=== PATIENT | male | born 1990 | race Caucasian/White ===

== ENCOUNTER 2021-05-30 12:46 | Inpatient (IN) | payer OTHER, SELFPAY ==
--- NOTE | ~2021-05-30 | CT_ITS ---
EXAMINATION: CT PELVIS WITH CONTRAST CLINICAL INFORMATION: Follow-up rectal abscess status post drainage COMPARISON: 05/30/2021 TECHNIQUE: Helical scanning was performed with submillimeter collimation through the pelvis with the use of oral contrast and during bolus intravenous injection of 100 mL of Omnipaque 350 intravenous contrast. Sagittal and coronal multiplanar 2-D reconstructions were obtained. This CT examination was performed using dose optimization techniques as appropriate, variously including the following: *Automated exposure control *Adjustment of mA and/or kV according to patient size (this includes techniques or standardized protocols for targeted exams where dose is matched to indication/reason for exam; i.e. extremities or head) *Use of iterative reconstruction technique DLP: 233 mGy-cm FINDINGS: Now seen is gas in the right greater than left hemiscrotum, well separate from the right posterior peroneal/perirectal drainage catheter, concerning for necrotizing fasciitis. Bilateral hydroceles are present. There are additional foci of gas within the subcutaneous fat of the right perineum, gluteal, and buttock soft tissues which may be related to the drain placement. There is a right posterior gluteal approach perirectal/perineal drainage catheter lateral to the recto prostatic space. The previously seen perirectal abscess is decreased in size. It has a U shaped configuration now measuring 3.0 x 3.3 cm in greatest dimension compared to 6.5 x 6 cm previously. There continues to be extension of the collection to the left ischiorectal fossa where there is a 2.4 x 1.3 cm fluid collection with a small focus of gas in image 38/65. There is severe wall thickening of the sigmoid colon with mucosal hyperemia and prominence of the vasa recta, consistent an active inflammatory process in the setting of ulcerative colitis. There is fat density wall thickening of the rectum consistent with sequelae of chronic inflammation. No lymphadenopathy. No acute or suspicious osseous abnormality. CT/CT pelvis w con IMPRESSION: New right buttock/peritoneal approach drainage catheter seen. The tip of the catheter appears somewhat superior and lateral to the center of the perirectal collection although the perirectal collection is significantly decreased in size. There continues to be extension of the collection into the left ischiorectal fat with a rim-enhancing fluid collection and gas, consistent with interval instrumentation. In addition to scattered foci of subcutaneous gas in the right buttock and perineum that are most likely attributable to the drain placement, also seen is gas within the right greater than left hemiscrotum, well separate from the course of the drainage catheter. This could be seen in the setting of necrotizing fasciitis. Recommend correlation with physical exam. Findings consistent with active inflammation of the sigmoid colon in the setting of ulcerative colitis. The findings and recommendations were discussed with Juan Moss MD by telephone at 06/03/2021 10:38 AM and it was ascertained that the content and urgency of the report was understood at the time of direct communication.
--- NOTE | ~2021-05-30 | CT_ITS ---
EXAMINATION: CT ABDOMEN AND PELVIS WITH CONTRAST CLINICAL INFORMATION: Rectal pain and bloody diarrhea. History of ulcerative colitis and abscess. COMPARISON: None TECHNIQUE: Multidetector volumetric images were obtained from the superior aspect of the liver through the pubic symphysis following administration 85 mL of Omnipaque 350 intravenous contrast. Sagittal and coronal reformatted images were obtained on the technologist's workstation. Oral contrast: Yes This CT examination was performed using dose optimization techniques as appropriate, variously including the following: *Automated exposure control *Adjustment of mA and/or kV according to patient size (this includes techniques or standardized protocols for targeted exams where dose is matched to indication/reason for exam; i.e. extremities or head) *Use of iterative reconstruction technique DLP: 402 mGy-cm FINDINGS: LUNG BASES: The visualized lung bases are unremarkable. LIVER, GALLBLADDER, AND BILIARY TREE: The liver is normal in size, shape, and attenuation. No focal hepatic lesion or biliary ductal dilatation is present. The gallbladder is unremarkable with no evidence of radiopaque gallstones, gallbladder wall thickening, or obvious pericholecystic inflammatory changes. PANCREAS: Unremarkable SPLEEN: Unremarkable ADRENAL GLANDS: Unremarkable KIDNEYS AND URETERS: The kidneys are normal in size, shape, and attenuation. No hydronephrosis, hydroureter, or calculi seen. No perinephric stranding. BLADDER: Unremarkable GASTROINTESTINAL TRACT: There is wall thickening and enhancement of the distal colon, the distal left and proximal sigmoid colon, and prominent vasa recta suggestive of active colitis. There is extraluminal probably inflammatory tissue seen posterior to the proximal sigmoid colon adjacent to the iliac vessels measuring approximately 1.5 x 2.5 cm, for example coronal reconstructed image 23 series 6. There is increased fat seen in the more distal colon and rectum suggestive of chronic changes from colitis. There is abnormal low-attenuation seen surrounding the posterior rectum from the 3 to 9 o'clock axes suggestive of multiloculated abscesses. Measured as one collection, this measures approximately 6 x 5 x 7 cm in transverse, AP and longitudinal dimension. This causes some mass effect on the rectum. There appears to be some wall thickening of the distal rectum or anus suggestive of active proctitis. There is stool in the colon suggestive of constipation. The small and large bowel is otherwise unremarkable. The appendix is not seen. The stomach is unremarkable. ABDOMINAL WALL: No significant hernia is appreciated. LYMPH NODES: Normal VASCULAR: Unremarkable PELVIC VISCERA: Unremarkable OSSEOUS STRUCTURES: Unremarkable CT/CT abdomen pelvis w con IMPRESSION: Active colitis involving the distal left sigmoid colon. Multiloculated fluid collections adjacent to the posterior rectum suggestive of perirectal abscesses from the 3 to 9 o'clock axis. This causes mass effect on the rectum. There does appear to be mild proctitis of the distal rectum. Abnormal soft tissue adjacent to the proximal posterior sigmoid colon abutting the iliac vessels probably representing inflammatory soft tissue. Constipation. Fleischner guidelines were followed.
[2021-05-30 12:47] VITALS: BP 121/73; PULSE 114; RESP 19; TEMP 36.6; O2SAT 98; BMI 21.6
[2021-05-30 13:40] LABS: Basophils Absolute Auto 0.1 X10*3/uL (0.0-0.2); Basophils Percent Auto 0.4 % (0-2); Eosinophils Percent Auto 0.1 % (0-4); Hematocrit 34.4 % (42.0-52.0); Hemoglobin 10.1 g/dl (14.0-18.0); Imm Gran Abs Auto 0.13 X10*3/uL (0.00-0.03); Imm Gran Pct Auto 0.7 % (0.0-0.4); Lymphocytes Percent Auto 5.2 % (20-40); MANUAL DIFF FLAG SCAN; Mean Corpuscular HGB Conc 29.4 g/dl (31.0-36.0); Mean Corpuscular Volume 71.5 fL (80.0-98.0); Mean Platelet Volume 9.7 fL (9.4-12.4); Monocytes Absolute Auto 2.2 X10*3/uL (0.1-1.2); Monocytes Percent Auto 11.8 % (2-11); Neutrophils Absolute Auto 15.4 x10*3/uL (2.0-8.3); Neutrophils Percent Auto 81.8 % (45-73); Platelet Count 454 X10*3/uL (160-400); Red Blood Count 4.81 X10*6/uL (4.60-5.80); Red Cell Distribution Width 16.3 % (11.0-16.0); SCAN SMEAR FLAG 1; White Blood Count 18.9 X10*3/uL (4.8-10.8)
[2021-05-30 13:42] LABS: Appearance Urine CLEAR; Color Urine YELLOW; Glucose Urine UA NEG (NEG); Leukocyte Esterase Urine NEG (NEG); Nitrite Urine NEG (NEG); PH 6.5 (5.0-8.0); Urine Blood NEG (NEG); Urine Ketones NEG (NEG); Urine Protein NEG (NEG-TRACE)
[2021-05-30 13:45] LABS: INTERNATIONAL NORM RATIO 1.5 (0.9-1.1); Prothrombin Time 17.3 SEC (9.9-13.0)
--- NOTE | 2021-05-30 13:46 | ED.GENADULT ---
HPI - General Adult General Chief complaint: General Medical Stated complaint: weakness Time Seen by Provider: 05/30/21 13:05 Source: patient Mode of arrival: ambulatory Limitations: no limitations History of Present Illness HPI narrative: 30-year-old male with history of ulcerative colitis, rectal abscess 2 months ago status post I&D who presents to the ER with increased rectal pain for the last 2 days after he had 2 days of bloody diarrhea. He has not had any bowel movement in the last 1 and half days but has had with increase in his rectal pain. He follows with a GI doctor in [employer] and is on a tapering dose of prednisone for his UC. His last colonoscopy was in December and he is recommended for a total colectomy which is planned for early the summer. He denies any visualized rectal drainage but is exquisitely tender when he went to [facility]. He had no nausea or vomiting. No fever or chills. No bowel movements in the last 1.5 days. MD complaint: Bloody diarrhea and rectal pain Onset (ago): day(s) (4) Location: abdomen and buttocks Radiation: non-radiation Severity: severe Severity scale (1-10): 10 Quality: stabbing and aching Pain Consistency: constant Relieving factors: immobilization Exacerbating factors: movement and other (Sitting, wiping) Associated symptoms: loss of appetite Treatments prior to arrival: none Related Data Home Medications Medication Instructions Recorded Confirmed prednisone 10 mg tablet 0 mg PO 05/30/21 Allergies Allergy/AdvReac Type Severity Reaction Status Date / Time No Known Allergies Allergy Verified 05/30/21 11:20 Review of Systems Review of Systems: Constitutional: No Fever, No Chills ENT/Mouth: No sore throat, No Rhinorrhea, No Swallowing Difficulty Cardiovascular: No Chest Pain, No SOB, No Orthopnea, No Edema Respiratory: No Cough, No Sputum, No Wheezing, No dyspnea Gastrointestinal: No Nausea, No Vomiting, + Diarrhea, No abdominal Pain, + Hematochezia, No Melena Genitourinary: No Dysuria, No Urinary Frequency, No Hematuria Musculoskeletal: No joint pain, No Myalgias Skin: No Skin Lesions, No rash Neuro: No Weakness, No Numbness, No Dizziness, No Headache Psych: + Anxiety/Panic, No Depression Heme/Lymph: No Bruising, No Lymphadenopathy Endocrine: No Polyuria, No Polydipsia PMFSH Past Medical History Medical History Colitis Primary sclerosing cholangitis Social History Social History Patient Tobacco Use Status: Never used Tobacco Advance Directives: No Advance Directives Information Provided: No Physical Exam ED Vital Signs: Vital Signs - 24 hr 05/30/21 12:47 05/30/21 14:00 05/30/21 16:29 Temperature 98 F 98.8 F 99.7 F Pulse Rate 114 H 94 92 Respiratory Rate 19 18 20 Blood Pressure 121/73 108/55 L Pulse Oximetry 98 98 98 BMI result Body Mass Index 21.6 Appearance: Alert. Oriented X3. No acute distress. Eyes: Pupils equal, round and reactive to light. ENT: Pharynx normal. Neck: Normal inspection. Neck supple. CVS: Tachycardic, regular rhythm. Pulses normal. Respiratory: No respiratory distress. Breath sounds normal. Abdomen: Soft and nontender. +BS normal x4. Superior to the anal verge and anus there is a 2 cm open area, possible fissure. It is tender. No purulence drainage or fluctuance. Only able to probe into the anus about 1 cm until patient had extreme pain and did not tolerate the examination. Skin: Skin warm and dry. Normal skin color. Normal skin turgor. No rashes. Extremities: No lower extremity edema. Neuro: Oriented X 3. No motor deficit. No sensory deficit. Course Course Course Narrative: 30-year-old male with history of ulcerative colitis diagnosed 10 years ago who has plans for a total colectomy this summer presents to the ER with rectal pain and constipation for the last 2 days. Prior to this he had 2 days of bloody diarrhea. He has history of a rectal abscess that required incision and drainage and admission to hospital in [employer] a few months ago. His exam reveals a possible fissure superior to the anal verge. No palpable rectal abscess however exam was limited due to discomfort. Will get lab workup and CT scan for further evaluation. Reevaluation(s) Reevaluation #1: With blood cell count elevated at 18.9. Concern for possible rectal abscess. Will give an empiric dose of IV Zosyn. IV fluids ordered. Will check lactic acid and blood cultures. Reevaluation #2: CT scan read was delayed. Result just came back with active colitis involving the distal left sigmoid colon. There is also multiloculated fluid collections adjacent to the posterior rectum suggestive of perirectal abscesses from the 3 to 9 o'clock axis. Causing mass effect on the rectum. There is mild proctitis of the distal rectum as well. Brad elder and Dr. Moss from General surgery for admission. He will take to the operating room tomorrow for incision and drainage. Consultations Consultation #1: Dr. Moss from General surgery. Medical Decision Making Lab Data Result diagrams: 05/30/21 13:33 05/30/21 13:33 Labs: Lab Results 05/30/21 05/30/21 05/30/21 Range/Units 13:33 13:33 13:33 WBC 18.9 H (4.8-10.8) X10*3/uL RBC 4.81 (4.60-5.80) X10*6/uL Hgb 10.1 L (14.0-18.0) g/dl Hct 34.4 L (42.0-52.0) % MCV 71.5 L (80.0-98.0) fL MCH 21.0 L (27.0-33.0) pg MCHC 29.4 L (31.0-36.0) g/dl RDW 16.3 H (11.0-16.0) % Plt Count 454 H (160-400) X10*3/uL MPV 9.7 (9.4-12.4) fL Immature Gran % (Auto) 0.7 H (0.0-0.4) % Neut % (Auto) 81.8 H (45-73) % Lymph % (Auto) 5.2 L (20-40) % [place] % (Auto) 11.8 H (2-11) % Eos % (Auto) 0.1 (0-4) % Baso % (Auto) 0.4 (0-2) % Lymph # (Auto) 1.0 L (1.2-4.9) X10*3/uL [place] # (Auto) 2.2 H (0.1-1.2) X10*3/uL Eos # (Auto) 0.0 (0.0-0.4) X10*3/uL Baso # (Auto) 0.1 (0.0-0.2) X10*3/uL Abs Immat Gran (auto) 0.13 H (0.00-0.03) X10*3/uL Absolute Neuts (auto) 15.4 H (2.0-8.3) x10*3/uL Absolute Nucleated RBC 0.000 (0.0-0.012) X10*3/uL Nucleated RBC % (auto) 0.0 (0.0-0.2) /100WBC Smear Tech's Comments VERIFIED PT 17.3 H (9.9-13.0) SEC INR 1.5 H (0.9-1.1) APTT 30.9 (24.1-38.0) SEC Sodium 139 (135-145) mmol/L Potassium 3.9 (3.3-5.1) mmol/L Chloride 103 (96-108) mmol/L Carbon Dioxide 27 (22-29) mmol/L Anion Gap 13 (12-20) BUN 9 (9-16) mg/dL Creatinine 0.73 (0.5-1.4) mg/dL Estim Creat Clear Calc 149.8 Estimated GFR > 60 Random Glucose 87 (60-115) mg/dL Lactic Acid (0.5-2.0) mmol/L Calcium 8.9 (8.4-10.2) mg/dL Magnesium 2.1 (1.6-2.6) mg/dL Total Bilirubin 0.7 (0.0-1.0) mg/dL Direct Bilirubin 0.3 (0.0-0.5) mg/dL AST 10 (5-37) U/L ALT 11 (0-40) U/L Alkaline Phosphatase 167 H (39-117) U/L Total Protein 5.9 L (6.5-8.0) g/dL Albumin 3.5 (3.5-5.0) g/dL Urine Color Urine Appearance Urine pH (5.0-8.0) Ur Specific [place] (1.005-1.025) Urine Protein (NEG-TRACE) MG/DL Urine Glucose (UA) (NEG) MG/DL Urine Ketones (NEG) MG/DL Urine Blood (NEG) Urine Nitrite (NEG) Ur Leukocyte Esterase (NEG) COVID-19 (AYO) (Negative) COVID-19 Clin Com 05/30/21 05/30/21 05/30/21 Range/Units 13:33 13:33 13:59 WBC (4.8-10.8) X10*3/uL RBC (4.60-5.80) X10*6/uL Hgb (14.0-18.0) g/dl Hct (42.0-52.0) % MCV (80.0-98.0) fL MCH (27.0-33.0) pg MCHC (31.0-36.0) g/dl RDW (11.0-16.0) % Plt Count (160-400) X10*3/uL MPV (9.4-12.4) fL Immature Gran % (Auto) (0.0-0.4) % Neut % (Auto) (45-73) % Lymph % (Auto) (20-40) % [place] % (Auto) (2-11) % Eos % (Auto) (0-4) % Baso % (Auto) (0-2) % Lymph # (Auto) (1.2-4.9) X10*3/uL [place] # (Auto) (0.1-1.2) X10*3/uL Eos # (Auto) (0.0-0.4) X10*3/uL Baso # (Auto) (0.0-0.2) X10*3/uL Abs Immat Gran (auto) (0.00-0.03) X10*3/uL Absolute Neuts (auto) (2.0-8.3) x10*3/uL Absolute Nucleated RBC (0.0-0.012) X10*3/uL Nucleated RBC % (auto) (0.0-0.2) /100WBC Smear Tech's Comments PT (9.9-13.0) SEC INR (0.9-1.1) APTT (24.1-38.0) SEC Sodium (135-145) mmol/L Potassium (3.3-5.1) mmol/L Chloride (96-108) mmol/L Carbon Dioxide (22-29) mmol/L Anion Gap (12-20) BUN (9-16) mg/dL Creatinine (0.5-1.4) mg/dL Estim Creat Clear Calc Estimated GFR Random Glucose (60-115) mg/dL Lactic Acid 1.1 (0.5-2.0) mmol/L Calcium (8.4-10.2) mg/dL Magnesium (1.6-2.6) mg/dL Total Bilirubin (0.0-1.0) mg/dL Direct Bilirubin (0.0-0.5) mg/dL AST (5-37) U/L ALT (0-40) U/L Alkaline Phosphatase (39-117) U/L Total Protein (6.5-8.0) g/dL Albumin (3.5-5.0) g/dL Urine Color YELLOW Urine Appearance CLEAR Urine pH 6.5 (5.0-8.0) Ur Specific [place] 1.010 (1.005-1.025) Urine Protein NEG (NEG-TRACE) MG/DL Urine Glucose (UA) NEG (NEG) MG/DL Urine Ketones NEG (NEG) MG/DL Urine Blood NEG (NEG) Urine Nitrite NEG (NEG) Ur Leukocyte Esterase NEG (NEG) COVID-19 (AYO) Negative (Negative) COVID-19 Clin Com See Note Discharge Plan Discharge Clinical Impression: Perirectal abscess, Colitis Patient Disposition: Admitted As Inpatient
[2021-05-30 13:47] LABS: Partial Thromboplastin Time 30.9 SEC (24.1-38.0)
[2021-05-30 13:54] LABS: IDNOW Serial# 16C4AD1C
[2021-05-30 13:55] LABS: COVID-19 Test Negative (Negative)
[2021-05-30 13:58] LABS: Alanine Aminotransferase 11 U/L (0-40); Albumin Level 3.5 g/dL (3.5-5.0); Alkaline Phosphatase 167 U/L (39-117); Anion Gap 13 (12-20); Aspartate Amino Transferase 10 U/L (5-37); Bilirubin Direct 0.3 mg/dL (0.0-0.5); Bilirubin Total 0.7 mg/dL (0.0-1.0); Blood Urea Nitrogen 9 mg/dL (9-16); Calcium 8.9 mg/dL (8.4-10.2); Carbon Dioxide 27 mmol/L (22-29); Chloride 103 mmol/L (96-108); Creatinine Clr Calc Pharmacy 149.8; Estimated Glomerular Filt Rate > 60; Glucose Random 87 mg/dL (60-115); Magnesium 2.1 mg/dL (1.6-2.6); Potassium 3.9 mmol/L (3.3-5.1); Sodium 139 mmol/L (135-145); Total Protein 5.9 g/dL (6.5-8.0)
[2021-05-30 14:00] VITALS: PULSE 94; RESP 18; TEMP 37.1; O2SAT 98
[2021-05-30 14:03] LABS: SLIDE REVIEW VERIFIED
[2021-05-30] MEDS: 0.9 % Sodium Chloride 1,000 ML 999 ML IVCONT ×2 (14:03→15:31)
[2021-05-30 14:16] LABS: Lactic Acid 1.1 mmol/L (0.5-2.0)
[2021-05-30] MEDS: Piperacillin Sodium/Tazobactam 3.375 GM in 0.9 % Sodium Chloride 50 ML IV ×2 (14:16→20:05)
[2021-05-30] MEDS: iohexoL 350 MG/ML 100 ML INFUS..BTL IV (14:54)
[2021-05-30 16:29] VITALS: BP 108/55; PULSE 92; RESP 20; TEMP 37.6; O2SAT 98
[2021-05-30 17:44] VITALS: BP 95/55
[2021-05-30] MEDS: Morphine Sulfate 4 MG/ML CARTRIDGE IVPUSH (17:45)
[2021-05-30] MEDS: Dextrose 5 % and Lactated Ring 1,000 ML 125 ML IVCONT (18:09)
--- NOTE | 2021-05-30 19:49 | PHA.MEDREC ---
Pharmacy Consult ? Medication Reconciliation Pharmacy has completed the medication reconciliation.
[2021-05-30 19:59] VITALS: BP 112/63; PULSE 90; RESP 18; O2SAT 96
[2021-05-30 21:14] VITALS: BP 93/59; PULSE 88; RESP 20; TEMP 37.6; O2SAT 97
[2021-05-31] VITALS (10 sets, daily range): BP systolic 90–118; BP diastolic 56–68; PULSE 80–113; RESP 14–18; TEMP 36.1–38.4; O2SAT 95–100; BMI 22.6
[2021-05-31 00:59] LABS: Appearance Urine CLEAR; Color Urine YELLOW; Glucose Urine UA NEG (NEG); Leukocyte Esterase Urine NEG (NEG); Nitrite Urine NEG (NEG); Urine Blood NEG (NEG); Urine Ketones NEG (NEG); Urine Protein NEG (NEG-TRACE)
[2021-05-31] MEDS: 0.9 % Sodium Chloride 500 ML IV ×2 (01:42→02:32)
[2021-05-31] MEDS: Piperacillin Sodium/Tazobactam 3.375 GM in 0.9 % Sodium Chloride 50 ML IV ×3 (01:43→19:51)
[2021-05-31] MEDS: oxyCODONE HCl Immed Release 5 MG TABLET PO ×2 (02:11→15:54)
[2021-05-31] MEDS: Dextrose 5 % and Lactated Ring 1,000 ML 125 ML IVCONT ×2 (03:17→15:54)
--- NOTE | 2021-05-31 05:30 | P.HPGS_ITS ---
History of Present Illness History of Present Illness Date of Service: 05/31/21 Chief complaint: Ulcerative colitis, rectal abscess, sepsis Narrative: Jordy Barnett is a 30 year old male with a known history of ulcerative colitis and a previous rectal abscess two months ago, now with a two day history of rectal pain and constipation followed by bloody diarrhea. He is being following by a aviation operations specialist in [place] and recently was placed on a Prednisone taper for the ulcerative colitis. He denies prior fever, chills, nausea or vomiting. He was planning a total colectomy in the summer. Patient was initially evaluated in the walk-in clinic, then sent to ED for further evaluation. WBC 18, CT positivie for rectal abscess and colitis. Review of Systems Constitutional: Constitutional: Denies chills, Denies fever(s), Denies headache(s) and Denies poor appetite ENT: Denies dizziness and Denies headache(s) Cardiovascular: Cardiovascular: Denies chest pain, Denies rapid heart rate, Denies palpitations and Denies slow heart rate Respiratory: Respiratory: Denies chest congestion, Denies cough, Denies pain on inspiration and Denies wheezing Gastrointestinal: Gastrointestinal: Denies abdominal pain, Denies bloating, Reports hematochezia, Denies change in stool character, Reports constipation, Reports diarrhea, Denies nausea, Denies vomiting, Denies hematemesis and Reports other (rectal pain) Genitourinary: Genitourinary: Reports urinary hesitancy Musculoskeletal: Musculoskeletal: Denies back pain, Denies arthralgias, Denies joint swelling and Denies numbness Integumentary/Breasts: Skin/Breast: Denies change in pigmentation, Denies erythema and Denies rash Neurologic: Denies dizziness, Denies headache(s) and Denies numbness Psychiatric: Psychiatric: Denies anxiety and Denies depression Endocrine: Endocrine: Denies palpitations Hematologic/Lymphatic: Hematologic/Lymphatic: Denies easy bleeding, Denies easy bruising and Denies lymphadenopathy Allergic/Immunologic: Allergic/Immunologic: Denies wheezing PMFSH Past Medical History Medical History Colitis Primary sclerosing cholangitis Social History Social History Household Members: Other Housing: Condominium Do you presently have visiting nurse or other home services: No Patient Tobacco Use Status: Never used Tobacco Use of substances other than those prescribed or required for medical reasons: No Currently Displaying Signs/Symptoms of Drug Intoxication Withdrawal: No Any prior treatment program specific to substance use: No Have you been hit, kicked, punched, or otherwise hurt by someone within the past year? If so, by whom?: No Do you feel safe in your current relationship?: Yes Is there a partner from a previous relationship who is making you feel unsafe now?: No Are you made to feel afraid or neglected: No Are you DNR?: No Advance Directives: No Advance Directives Information Provided: No Do you have thoughts of harming others: None Do you have a plan to hurt others: No Plan Recently lost weight without trying: No How much weight loss: Not applicable Eating poorly because of decreased appetite: No Nutrition screen score: 0 Nutrition Risks: No Nutritional Risk Poor oral hygiene: No Meds Allergies Allergy/AdvReac Type Severity Reaction Status Date / Time No Known Allergies Allergy Verified 05/30/21 11:20 Active Medications: Current Medications Hydromorphone HCl (Hydromorphone Hcl 1 Mg/Ml Syringe) 0.5 mg IVPUSH Q3H PRN; Protocol PRN Reason: Pain, Severe (Pain Scale 7-10) Acetaminophen (Ofirmev) 1,000 mg in 100 mls @ 400 mls/hr IV Q6H [facility] Last Infusion: 05/31/21 00:45 Dose: Infused Documented by: Dextrose/Lactated Ringer's ([email or web address]) 1,000 mls @ 125 mls/hr IVCONT .Q8H [facility] Last Admin: 05/31/21 03:17 Dose: 125 mls/hr Documented by: Piperacillin Sod/Tazobactam (Sod 3.375 gm/ Sodium Chloride) 50 mls @ 100 mls/hr IV Q6H [facility] Last Infusion: 05/31/21 02:13 Dose: Infused Documented by: Ondansetron HCl (Ondansetron Hcl 4 Mg/2 Ml Vial) 4 mg IVPUSH Q8H PRN PRN Reason: Nausea Oxycodone HCl (Oxycodone Hcl Immed Release 5 Mg Tablet) 5 mg PO Q6H PRN PRN Reason: Pain, Moderate (Pain Scale 4-6 Last Admin: 05/31/21 02:11 Dose: 5 mg Documented by: Pharmacy Consult (Consult Rx Perform Med Rec) 1 each MISCELLANE ONCE PRN PRN Reason: Consult order Prednisone (Prednisone 10 Mg Tablet) 10 mg PO DAILY LUIS MIGUEL Sodium Chloride (0.9 % Sodium Chloride Flush 3 Ml Syringe) 3 ml IVFLUSH QSHIFT LUIS MIGUEL Zolpidem Tartrate (Zolpidem Tartrate 5 Mg Tablet) 5 mg PO BEDTIME PRN PRN Reason: Insomnia Home Medications Medication Instructions Recorded Confirmed Last Taken Type multivitamin 1 tab PO DAILY 05/30/21 05/30/21 Unknown History prednisone 10 mg tablet 10 mg PO DAILY 05/30/21 05/30/21 Unknown History Physical Exam Vital Signs: Vital Signs: Last Vital Signs Temp 98.3 F 05/31/21 03:12 Pulse 98 05/31/21 03:12 Resp 18 05/31/21 03:12 BP 113/63 05/31/21 03:12 Pulse Ox 99 05/31/21 03:12 BMI result Body Mass Index 22.6 Const: General: cooperative, comfortable and well developed Nutritional Appearance: well nourished Orientation/consciousness: patient oriented x3 Eyes: Sclerae: sclerae normal EOM: EOMs intact bilaterally Neck: Neck: Yes normal visual inspection Resp: Effort & Inspection: normal respiratory effort, no cough, no respiratory distress and no stridor Cardio: Jugular venous distension: no JVD GI: Inspection: Yes normal to inspection Palpation (GI): Soft to palpation, nontender, no guarding and not rigid Rectal Exam - Male: Yes other ( Tender in fluctuance. PeriAnal skin) Skin: General skin exam: dry skin Rashes: no rashes Neuro: General: patient oriented x3 and no focal motor deficits Extrem: General: Yes full ROM and Yes no clubbing, cyanosis or edema Psych: Appearance: grossly normal Results Results Labs: Short CBC 05/30/21 Range/Units 13:33 WBC 18.9 H (4.8-10.8) X10*3/uL Hgb 10.1 L (14.0-18.0) g/dl Hct 34.4 L (42.0-52.0) % Plt Count 454 H (160-400) X10*3/uL BMP 05/30/21 13:33 Sodium 139 Potassium 3.9 Chloride 103 Carbon Dioxide 27 BUN 9 Creatinine 0.73 Calcium 8.9 Liver Function 05/30/21 Range/Units 13:33 Total Bilirubin 0.7 (0.0-1.0) mg/dL Direct Bilirubin 0.3 (0.0-0.5) mg/dL AST 10 (5-37) U/L ALT 11 (0-40) U/L Alkaline Phosphatase 167 H (39-117) U/L Albumin 3.5 (3.5-5.0) g/dL Urine 05/30/21 05/31/21 Range/Units 13:33 00:53 Urine Color YELLOW YELLOW Urine Appearance CLEAR CLEAR Urine pH 6.5 6.0 (5.0-8.0) Ur Specific [place] 1.010 1.010 (1.005-1.025) Urine Protein NEG NEG (NEG-TRACE) MG/DL Urine Glucose (UA) NEG NEG (NEG) MG/DL Assessment and Plan (1) Perirectal abscess: Status: Acute (2) Colitis: Status: Acute Plan 30 year old male patient with a history of UC and rectal abscess presenting with a recurrent episode of rectal pain found to have a rectal abscess by CT. Patient is admitted for IV antibiotics and will need an exam under anesthesia, drainage of the rectal abscess in the am. Will keep NPO with IV hydration, Zosyn IV, continue prednisone taper. I reviewed the procedure, alternatives, and risks with the patient he consents to a an exam under anesthesia with incision and drainage of a perirectal abscess. He has been added onto the OR schedule for this morning. Quality Stroke Does the patient have a stroke diagnosis?: No VTE Prior VTE?: No VTE Risk Level:: Surgical - moderate VTE Device Contraindication: N/A - Device Ordered VTE Drug Contraindication: Treatment Not Indicated Procedures Date of Service Date of Service: 05/31/21
[2021-05-31 06:34] LABS: Basophils Absolute Auto 0.1 X10*3/uL (0.0-0.2); Basophils Percent Auto 0.5 % (0-2); Eosinophils Absolute Auto 0.1 X10*3/uL (0.0-0.4); Eosinophils Percent Auto 0.9 % (0-4); Hematocrit 29.2 % (42.0-52.0); Hemoglobin 8.6 g/dl (14.0-18.0); Imm Gran Abs Auto 0.11 X10*3/uL (0.00-0.03); Imm Gran Pct Auto 0.9 % (0.0-0.4); Lymphocytes Absolute Auto 0.7 X10*3/uL (1.2-4.9); Lymphocytes Percent Auto 5.5 % (20-40); MANUAL DIFF FLAG SCAN; Mean Corpuscular HGB Conc 29.5 g/dl (31.0-36.0); Mean Corpuscular Hemoglobin 21.2 pg (27.0-33.0); Mean Corpuscular Volume 71.9 fL (80.0-98.0); Mean Platelet Volume 9.7 fL (9.4-12.4); Monocytes Absolute Auto 2.3 X10*3/uL (0.1-1.2); Monocytes Percent Auto 17.5 % (2-11); Neutrophils Absolute Auto 9.7 x10*3/uL (2.0-8.3); Neutrophils Percent Auto 74.7 % (45-73); Platelet Count 370 X10*3/uL (160-400); Red Blood Count 4.06 X10*6/uL (4.60-5.80); Red Cell Distribution Width 16.7 % (11.0-16.0); SCAN SMEAR FLAG 1; White Blood Count 12.9 X10*3/uL (4.8-10.8)
[2021-05-31 06:46] LABS: Anion Gap 11 (12-20); Blood Urea Nitrogen 8 mg/dL (9-16); Calcium 8.4 mg/dL (8.4-10.2); Carbon Dioxide 26 mmol/L (22-29); Chloride 104 mmol/L (96-108); Creatinine Clr Calc Pharmacy 168.1; Estimated Glomerular Filt Rate > 60; Glucose Random 108 mg/dL (60-115); Potassium 3.9 mmol/L (3.3-5.1); Sodium 137 mmol/L (135-145)
[2021-05-31 06:59] LABS: SLIDE REVIEW VERIFIED
--- NOTE | 2021-05-31 07:14 | PC.NURSE ---
Pt had difficult time urinating. Voided 300 upon admission to unit and later 100. This was after patient recieved 1,000 NS bolus and patient also has fluids infusing at 125/hr. Pt uncomfortable with c/o abdominal pain. Spoke with Dr Moss who ordered FC-patient refused. Dr Moss aware. Straight cathed pt for 800mls. Pt states he feels much better. IV fluids infusing as ordered. Dr Moss in to see patient this am. Pt to go to oR this am. Will continue to monitor.
[2021-05-31] MEDS: Lactated Ringers 1,000 ML 50 ML IVCONT (08:02)
--- NOTE | 2021-05-31 08:06 | P.CONAN_ITS ---
HPI - Anesthesia Eval Consult details Narrative: Perirectal Abscess PMFSH Active Problems Active Problems: All Active Problems (Updated 05/30/21 @ 17:28 by DENISSE Louie) Perirectal abscess (Acute) Colitis (Acute) Abdominal pain (Acute) Past Medical History Medical History Colitis Primary sclerosing cholangitis Family History Family history of problems with anesthesia: No Surgical History History of Problems with Anesthesia: No Social History Social History Household Members: Other Housing: [facility] Do you presently have visiting nurse or other home services: No Patient Tobacco Use Status: Never used Tobacco Use of substances other than those prescribed or required for medical reasons: No Currently Displaying Signs/Symptoms of Drug Intoxication Withdrawal: No Any prior treatment program specific to substance use: No Have you been hit, kicked, punched, or otherwise hurt by someone within the past year? If so, by whom?: No Do you feel safe in your current relationship?: Yes Is there a partner from a previous relationship who is making you feel unsafe now?: No Are you made to feel afraid or neglected: No Are you DNR?: No Advance Directives: No Advance Directives Information Provided: No Do you have thoughts of harming others: None Do you have a plan to hurt others: No Plan Recently lost weight without trying: No How much weight loss: Not applicable Eating poorly because of decreased appetite: No Nutrition screen score: 0 Nutrition Risks: No Nutritional Risk Poor oral hygiene: No Meds Allergies Allergy/AdvReac Type Severity Reaction Status Date / Time No Known Allergies Allergy Verified 05/30/21 11:20 Active Medications: Current Medications Hydromorphone HCl (Hydromorphone Hcl 1 Mg/Ml Syringe) 0.5 mg IVPUSH Q3H PRN; Protocol PRN Reason: Pain, Severe (Pain Scale 7-10) Acetaminophen (Ofirmev) 1,000 mg in 100 mls @ 400 mls/hr IV Q6H [facility] Last Infusion: 05/31/21 05:48 Dose: Infused Documented by: Dextrose/Lactated Ringer's (D5lr) 1,000 mls @ 125 mls/hr IVCONT .Q8H [facility] Last Infusion: 05/31/21 07:58 Dose: 0 mls/hr Documented by: Piperacillin Sod/Tazobactam (Sod 3.375 gm/ Sodium Chloride) 50 mls @ 100 mls/hr IV Q6H [facility] Last Admin: 05/31/21 07:58 Dose: Not Given Documented by: Ondansetron HCl (Ondansetron Hcl 4 Mg/2 Ml Vial) 4 mg IVPUSH Q8H PRN PRN Reason: Nausea Oxycodone HCl (Oxycodone Hcl Immed Release 5 Mg Tablet) 5 mg PO Q6H PRN PRN Reason: Pain, Moderate (Pain Scale 4-6 Last Admin: 05/31/21 02:11 Dose: 5 mg Documented by: Pharmacy Consult (Consult Rx Perform Med Rec) 1 each MISCELLANE ONCE PRN PRN Reason: Consult order Prednisone (Prednisone 10 Mg Tablet) 10 mg PO DAILY [facility] Last Admin: 05/31/21 07:58 Dose: Not Given Documented by: Sodium Chloride (0.9 % Sodium Chloride Flush 3 Ml Syringe) 3 ml IVFLUSH QSHIFT [facility] Last Admin: 05/31/21 07:57 Dose: Not Given Documented by: Zolpidem Tartrate (Zolpidem Tartrate 5 Mg Tablet) 5 mg PO BEDTIME PRN PRN Reason: Insomnia Home Medications Medication Instructions Recorded Confirmed Last Taken Type multivitamin 1 tab PO DAILY 05/30/21 05/30/21 Unknown History prednisone 10 mg tablet 10 mg PO DAILY 05/30/21 05/30/21 Unknown History Exam Exam Date and Time: May 31, 2021 0806 Height,Weight and Vital Signs: Height 5 ft 11 in Weight 73.5 kg Last Vital Signs Temp 98.7 F 05/31/21 07:56 Pulse 87 05/31/21 07:56 Resp 16 05/31/21 07:56 BP 109/65 05/31/21 07:56 Pulse Ox 97 05/31/21 07:56 Pertinent Lab Results Pertinent Lab Results: Laboratory Tests 05/30/21 05/30/21 05/30/21 13:33 13:33 13:33 WBC 18.9 H RBC 4.81 Hgb 10.1 L Hct 34.4 L MCV 71.5 L MCH 21.0 L MCHC 29.4 L RDW 16.3 H Plt Count 454 H MPV 9.7 Immature Gran % (Auto) 0.7 H Neut % (Auto) 81.8 H Lymph % (Auto) 5.2 L [place] % (Auto) 11.8 H Eos % (Auto) 0.1 Baso % (Auto) 0.4 Lymph # (Auto) 1.0 L [place] # (Auto) 2.2 H Eos # (Auto) 0.0 Baso # (Auto) 0.1 Abs Immat Gran (auto) 0.13 H Absolute Neuts (auto) 15.4 H Absolute Nucleated RBC 0.000 Nucleated RBC % (auto) 0.0 Smear Tech's Comments VERIFIED PT 17.3 H INR 1.5 H APTT 30.9 Sodium 139 Potassium 3.9 Chloride 103 Carbon Dioxide 27 Anion Gap 13 BUN 9 Creatinine 0.73 Estim Creat Clear Calc 149.8 Estimated GFR > 60 Random Glucose 87 Lactic Acid Calcium 8.9 Magnesium 2.1 Total Bilirubin 0.7 Direct Bilirubin 0.3 AST 10 ALT 11 Alkaline Phosphatase 167 H Total Protein 5.9 L Albumin 3.5 Urine Color Urine Appearance Urine pH Ur Specific [place] Urine Protein Urine Glucose (UA) Urine Ketones Urine Blood Urine Nitrite Ur Leukocyte Esterase COVID-19 ([facility]) [facility] Clin Com 05/30/21 05/30/21 05/30/21 13:33 13:33 13:59 WBC RBC Hgb Hct MCV MCH MCHC RDW Plt Count MPV Immature Gran % (Auto) Neut % (Auto) Lymph % (Auto) [place] % (Auto) Eos % (Auto) Baso % (Auto) Lymph # (Auto) [place] # (Auto) Eos # (Auto) Baso # (Auto) Abs Immat Gran (auto) Absolute Neuts (auto) Absolute Nucleated RBC Nucleated RBC % (auto) Smear Tech's Comments PT INR APTT Sodium Potassium Chloride Carbon Dioxide Anion Gap BUN Creatinine Estim Creat Clear Calc Estimated GFR Random Glucose Lactic Acid 1.1 Calcium Magnesium Total Bilirubin Direct Bilirubin AST ALT Alkaline Phosphatase Total Protein Albumin Urine Color YELLOW Urine Appearance CLEAR Urine pH 6.5 Ur Specific [place] 1.010 Urine Protein NEG Urine Glucose (UA) NEG Urine Ketones NEG Urine Blood NEG Urine Nitrite NEG Ur Leukocyte Esterase NEG COVID-19 ([facility]) Negative [facility] Clin Com See Note 05/31/21 05/31/21 05/31/21 00:53 06:15 06:15 WBC 12.9 H RBC 4.06 L Hgb 8.6 L Hct 29.2 L MCV 71.9 L MCH 21.2 L MCHC 29.5 L RDW 16.7 H Plt Count 370 MPV 9.7 Immature Gran % (Auto) 0.9 H Neut % (Auto) 74.7 H Lymph % (Auto) 5.5 L [place] % (Auto) 17.5 H Eos % (Auto) 0.9 Baso % (Auto) 0.5 Lymph # (Auto) 0.7 L [place] # (Auto) 2.3 H Eos # (Auto) 0.1 Baso # (Auto) 0.1 Abs Immat Gran (auto) 0.11 H Absolute Neuts (auto) 9.7 H Absolute Nucleated RBC 0.000 Nucleated RBC % (auto) 0.0 Smear Tech's Comments VERIFIED PT INR APTT Sodium 137 Potassium 3.9 Chloride 104 Carbon Dioxide 26 Anion Gap 11 L BUN 8 L Creatinine 0.68 Estim Creat Clear Calc 168.1 Estimated GFR > 60 Random Glucose 108 Lactic Acid Calcium 8.4 Magnesium Total Bilirubin Direct Bilirubin AST ALT Alkaline Phosphatase Total Protein Albumin Urine Color YELLOW Urine Appearance CLEAR Urine pH 6.0 Ur Specific [place] 1.010 Urine Protein NEG Urine Glucose (UA) NEG Urine Ketones NEG Urine Blood NEG Urine Nitrite NEG Ur Leukocyte Esterase NEG COVID-19 ([facility]) COVID-19 Clin Com Airway Mallampati Class: II TM Dist: >3cm Neck ROM: Full Loose/Missing/Broken Teeth: No Heart: [id number] Lungs: cta b/l Assessment and Plan Assessment Anesthesia Assessment: Anesthesia Plan Discussed and Chart Reviewed Final Anesthetic Review Family History of Problems with Anesthesia: No History of Problems with Anesthesia: No NPO: Yes ASA Class: II Final Preanesthetic Review: No Changes in Pt Med Stat, Meds/Allgs Chart Reviewed, Consent Obtained/Reviewed and Anes Risks/Benef Reviewed Patient Risk: Intermediate Assessment/Block/Sedation in SS: Assess/Block/Sedation-SS Anesthetic Plan Anesthetic Plan: GA and Agree w/ Assess. and Plan Disposition: Standard PACU
--- NOTE | 2021-05-31 08:46 | P.CDIC_ITS ---
CDI Concurrent Query Documentation Clarification: PHYSICIAN'S DOCUMENTATION REQUEST Date of Query: 05/31/21 0847 Patient Name: Jodry Barnett Admit Date: 05/31/21 Dear Doctor, A review of the medical record indicates additional documentation may be needed. Please review below and update the documentation accordingly. Clinical Indicators: Risk Factors/Clinical Indicators/Treatments Patient in ED with rectal abscess. WBC 18.9 Temp 101.1/100.9 HR 114/113 BP 108/55 IV Antibotics, IV fluids. Surgery - drainage of rectal abscess. Please clarify which of the following most accurately describes the above abnormalities: * Sepsis * Systemic manifestations of infection, with 2 or more SIRS criteria which include: -Fever > 100.4F or hypothermia < 96.8 F -Leukocytosis - WBC > 12,000 or leukopenia, WBC < 4,000 or > 10% bands -Tachycardia > 90 beats/minute -Tachypnea - RR > 20 breaths/minute or PaCO2 < 32mmHg (Source: Merck Manual 2013) * Indicate the knows or suspected organism * Indicate the known or suspected underlying infection, such as UTI, pneumonia, or cellulitis * Indicate if a suspected bacteria infection of unknown source * Indicate if associated with an implanted device such as a F/C, PICC line, orthopedic hardware, etc * Indicate if there is associated organ dysfunction, such as renal or respiratory failure * SIRS due to a non-infectious source * Indicate the known or suspected etiology * Indicate if there is associated organ dysfunction, such as renal or respiratory failure * Other * Unable to determine Use of terms such as suspected, likely, concern for, or probable (associated with a specific diagnosis that is being evaluated, monitored, or treated as if it exists) are acceptable and can be coded in the inpatient setting, when documented at the time of discharge. Thank you, Jennifer Cannon [facility], CDIS Extension: [phone] Please use your independent medical judgment in providing your response. THIS QUERY IS PART OF THE PERMANENT MEDICAL RECORD Provider Response: Sepsis Other Diagnosis: Due to perirectal abscess as a complication of ulcerative colitis. Wound cultures pending
--- NOTE | 2021-05-31 09:05 | W.PM.OPN ---
Operative Note Operative Note Date of Service: 05/31/21 Narrative: Preoperative diagnosis: ulcerative colitis, horseshoe perirectal abscess Postoperative diagnosis: same Procedure: exam under anesthesia, incision and drainage of large horseshoe perirectal abscess Surgeon: Juan Moss MD Public Safety Telecommunicator: no physician Anesthesia: MAC Indications for procedure: 30-year-old male patient with history of ulcerative colitis and a previous history of a perirectal abscess presenting with a recurrent perirectal abscess with severe rectal pain and constipation. On examination with CT a large horseshoe perirectal abscess is identified pure Operative findings: large deep perirectal abscess surrounding rectum. Previous drainage site in the posterior anal skin was open and draining. Drainage was performed through the same incision. ML and CT tube placed deep into the abscess cavity and secured to the skin. Specimen: Wound culture rectal abscess Estimated blood loss: 10 mL Complications: none Procedure details: patient was brought to the OR and placed in a right lateral decubitus position. after administering light sedation the perianal skin was prepped with Betadine and draped in a sterile fashion. A surgical time-out was called the consent confirmed. Patient received preoperative antibiotics and Venodyne boots were in place. Local anesthesia consisting of 1% lidocaine with epinephrine +0.25% Sensorcaine was infiltrated in the perianal skin adjacent to the previous incision site. Using the CT as a guide the abscess was locate the abscess using a range with an 18 gauge needle. A hemostat was then used to open up the abscess cavity which was approximately 5 cm deep to the skin. Loculations within the abscess cavity were further opened using the index finger. A large purulence collection with thick yellow/ green fluid was evacuated. The wound culture of this fluid was sent. Wounds were then irrigated with saline solution and then saline with peroxide. This was evacuated completely. A Mallencot tube was then inserted deep into the abscess cavity and secured to the skin using a 4-0 nylon suture. Wounds were then dressed with sterile dressings. The patient tolerated the procedure well. Sponge, instrument, and needle counts reported as correct. Patient was transferred to PACU in stable condition.
--- NOTE | 2021-05-31 15:27 | PC.NURSE ---
bladder scan for 600, st cath for 800
--- NOTE | 2021-05-31 15:46 | MHC.CM.PN ---
Addendum entered by Soniya Mai 05/31/21 15:56: INIATED REFERRAL TO THE [facility] FOR POSSIVLE NEED FOR VNA -NURSING S/P ID OF RECTAL ABSCESS AND HAS DRAIN IN Original Note: NURSE ELECTRICAL LINEWORKER NOTE ELECTRONIC MEDICAL RECORD REVIEWED ALONG WITH CASE DISCUSSED WITH STAFF NURSE AND THE HOSPITALIST MET WITH PATIENT HE HAS BEEN ADMITTED PER DOCUMENTATION FOR ULCERATIVE COLITIS AND RECTAL ABSCESS SEPSIS HE REPORTS HE IS ACTIVE INDEPENDENT IN ALL ADLS AND MOBILITY AND IS EMPLOYED PCP CONFIRMED DR BILLY CHACKO [facility] VACINATION X3 PFIZER HCP YES [place] DISCHARGE PLAN HOME WITH NO SERVICES AT THIS TIME PCP DR BILLY CHACKO TRANSPORTATION FAMILY /FRIEND
[2021-05-31] MEDS: 0.9 % Sodium Chloride Flush 3 ML SYRINGE IVFLUSH (15:48)
[2021-05-31] MEDS: polyethylene glycoL 3350 17 GM POWD.PACK PO (16:55)
[2021-06-01] VITALS (7 sets, daily range): BP systolic 105–112; BP diastolic 54–65; PULSE 73–85; RESP 17–18; TEMP 36.1–36.9; O2SAT 95–99
[2021-06-01] MEDS: 0.9 % Sodium Chloride Flush 3 ML SYRINGE IVFLUSH ×3 (00:26→19:26)
[2021-06-01] MEDS: Dextrose 5 % and Lactated Ring 1,000 ML 125 ML IVCONT ×3 (00:27→18:13)
[2021-06-01] MEDS: oxyCODONE HCl Immed Release 5 MG TABLET PO ×2 (00:54→18:12)
[2021-06-01] MEDS: Piperacillin Sodium/Tazobactam 3.375 GM in 0.9 % Sodium Chloride 50 ML IV ×4 (02:54→19:25)
[2021-06-01 07:18] LABS: MANUAL DIFF FLAG NO
[2021-06-01 07:21] LABS: Basophils Absolute Auto 0.1 X10*3/uL (0.0-0.2); Basophils Percent Auto 0.6 % (0-2); Eosinophils Absolute Auto 0.6 X10*3/uL (0.0-0.4); Eosinophils Percent Auto 6.1 % (0-4); Hematocrit 29.6 % (42.0-52.0); Hemoglobin 8.6 g/dl (14.0-18.0); Imm Gran Abs Auto 0.03 X10*3/uL (0.00-0.03); Imm Gran Pct Auto 0.3 % (0.0-0.4); Lymphocytes Absolute Auto 1.6 X10*3/uL (1.2-4.9); Lymphocytes Percent Auto 15.9 % (20-40); Mean Corpuscular HGB Conc 29.1 g/dl (31.0-36.0); Mean Corpuscular Hemoglobin 21.3 pg (27.0-33.0); Mean Corpuscular Volume 73.4 fL (80.0-98.0); Mean Platelet Volume 9.7 fL (9.4-12.4); Monocytes Absolute Auto 1.5 X10*3/uL (0.1-1.2); Monocytes Percent Auto 14.7 % (2-11); Neutrophils Absolute Auto 6.2 x10*3/uL (2.0-8.3); Neutrophils Percent Auto 62.4 % (45-73); Platelet Count 329 X10*3/uL (160-400); Red Blood Count 4.03 X10*6/uL (4.60-5.80); Red Cell Distribution Width 16.7 % (11.0-16.0); White Blood Count 9.9 X10*3/uL (4.8-10.8)
[2021-06-01] MEDS: predniSONE 10 MG TABLET PO (07:34)
--- NOTE | 2021-06-01 07:57 | PM.PNGS ---
Subjective Subjective Date of Service: 06/01/21 Interval history: Patient reports decreased pain. Able to eat some yesterday, appetite is fair. Denies fever or chills. Dressings unchanged during the night. No bowel movement yet. Physical Exam Vital Signs: Vital Signs: Last Vital Signs Temp 96.9 F 06/01/21 03:20 Pulse 85 06/01/21 03:20 Resp 17 06/01/21 03:20 BP 108/58 L 06/01/21 03:20 Pulse Ox 98 06/01/21 03:20 BMI result Body Mass Index 22.6 Const: General: no acute distress Nutritional Appearance: well nourished Orientation/consciousness: patient oriented x3 Limitations: no limitations Resp: Effort & Inspection: normal respiratory effort, no audible wheezes, no cough and no respiratory distress GI: Other: Rectal examination purulent and serosanguineous discharge noted on dressings. No erythema in the surrounding skin. Drain is intact. Clean dressings applied. Neuro: General: patient oriented x3 Objective Data Active Medications Hydromorphone HCl (Hydromorphone Hcl 1 Mg/Ml Syringe) 0.5 mg IVPUSH Q3H PRN; Protocol PRN Reason: Pain, Severe (Pain Scale 7-10) Acetaminophen (Ofirmev) 1,000 mg in 100 mls @ 400 mls/hr IV Q6H [facility] Last Infusion: 06/01/21 06:01 Dose: 0 mls/hr Documented by: OLYA Dextrose/Lactated Ringer's (D5lr) 1,000 mls @ 125 mls/hr IVCONT .Q8H [facility] Last Admin: 06/01/21 00:27 Dose: 125 mls/hr Documented by: OLYA Piperacillin Sod/Tazobactam (Sod 3.375 gm/ Sodium Chloride) 50 mls @ 100 mls/hr IV Q6H [facility] Last Admin: 06/01/21 07:34 Dose: 100 mls/hr Documented by: CAMILA Magnesium Hydroxide (Milk Of Magnesia 30 Ml Oral.Susp) 30 ml PO BEDTIME PRN PRN Reason: Constipation Ondansetron HCl (Ondansetron Hcl 4 Mg/2 Ml Vial) 4 mg IVPUSH Q8H PRN PRN Reason: Nausea Oxycodone HCl (Oxycodone Hcl Immed Release 5 Mg Tablet) 5 mg PO Q6H PRN PRN Reason: Pain, Moderate (Pain Scale 4-6 Last Admin: 06/01/21 00:54 Dose: 5 mg Documented by: OLYA Pharmacy Consult (Consult Rx Perform Med Rec) 1 each MISCELLANE ONCE PRN PRN Reason: Consult order Prednisone (Prednisone 10 Mg Tablet) 10 mg PO DAILY [facility] Last Admin: 06/01/21 07:34 Dose: 10 mg Documented by: CAMILA Sodium Chloride (0.9 % Sodium Chloride Flush 3 Ml Syringe) 3 ml IVFLUSH QSHIFT [facility] Last Admin: 06/01/21 07:35 Dose: 3 ml Documented by: CAMILA Zolpidem Tartrate (Zolpidem Tartrate 5 Mg Tablet) 5 mg PO BEDTIME PRN PRN Reason: Insomnia Labs CBC & Chem 7: 06/01/21 07:06 05/31/21 06:15 Labs: Laboratory Results - last 24 hr 06/01/21 07:06 MCV 73.4 L MCH 21.3 L MCHC 29.1 L RDW 16.7 H Plt Count 329 MPV 9.7 Immature Gran % (Auto) 0.3 Neut % (Auto) 62.4 Lymph % (Auto) 15.9 L [place] % (Auto) 14.7 H Eos % (Auto) 6.1 H Baso % (Auto) 0.6 Lymph # (Auto) 1.6 [place] # (Auto) 1.5 H Eos # (Auto) 0.6 H Baso # (Auto) 0.1 Abs Immat Gran (auto) 0.03 Absolute Neuts (auto) 6.2 Absolute Nucleated RBC 0.000 Nucleated RBC % (auto) 0.0 Microbiology Microbiology Results: Microbiology 05/30/21 14:14 Blood Culture - Preliminary Blood - Venous No growth after 24 hours. 05/30/21 13:59 Blood Culture - Preliminary Blood - Venous No growth after 24 hours. 05/31/21 08:51 Gram Stain - Final Juli-rectal abscess Procedures Date of Service Date of Service: 06/01/21 Progress Note: A&P Assessment and plan (1) Perirectal abscess: Status: Acute Assessment and Plan: Patient with a large horseshoe shaped rectal abscess, status post incision and drainage, washout. Wound cultures with mixed infection. Continue Zosyn IV. (2) Sepsis: Status: Acute Assessment and Plan: Sepsis due to abscess in the perirectal region status post drainage yesterday. Wounds are clean. WBC is improved, now normal. Continue antibiotics. (3) Constipation: Status: Acute Assessment and Plan: MiraLax and milk of magnesia ordered. No bowel movement yet. Will continue to monitor. (4) Urinary retention: Status: Acute Assessment and Plan: Patient with persistent urinary retention probably due to large perirectal abscess. Patient required several straight caths and now Cheng catheter is in place. Will request Urology consultation. (5) Anemia due to chronic blood loss: Status: Acute Assessment and Plan: Patient with anemia due to chronic blood loss probably as result of the ulcerative colitis. Counts have dropped since the surgery. Will continue to monitor, check CBC in a.m.. Fall Risk Details Current Medications: Current Medications Hydromorphone HCl (Hydromorphone Hcl 1 Mg/Ml Syringe) 0.5 mg IVPUSH Q3H PRN; Protocol PRN Reason: Pain, Severe (Pain Scale 7-10) Acetaminophen (Ofirmev) 1,000 mg in 100 mls @ 400 mls/hr IV Q6H [facility] Last Infusion: 06/01/21 06:01 Dose: Infused Documented by: Dextrose/Lactated Ringer's (D5lr) 1,000 mls @ 125 mls/hr IVCONT .Q8H [facility] Last Admin: 06/01/21 00:27 Dose: 125 mls/hr Documented by: Piperacillin Sod/Tazobactam (Sod 3.375 gm/ Sodium Chloride) 50 mls @ 100 mls/hr IV Q6H [facility] Last Admin: 06/01/21 07:34 Dose: 100 mls/hr Documented by: Magnesium Hydroxide (Milk Of Magnesia 30 Ml Oral.Susp) 30 ml PO BEDTIME PRN PRN Reason: Constipation Ondansetron HCl (Ondansetron Hcl 4 Mg/2 Ml Vial) 4 mg IVPUSH Q8H PRN PRN Reason: Nausea Oxycodone HCl (Oxycodone Hcl Immed Release 5 Mg Tablet) 5 mg PO Q6H PRN PRN Reason: Pain, Moderate (Pain Scale 4-6 Last Admin: 06/01/21 00:54 Dose: 5 mg Documented by: Pharmacy Consult (Consult Rx Perform Med Rec) 1 each MISCELLANE ONCE PRN PRN Reason: Consult order Prednisone (Prednisone 10 Mg Tablet) 10 mg PO DAILY [facility] Last Admin: 06/01/21 07:34 Dose: 10 mg Documented by: Sodium Chloride (0.9 % Sodium Chloride Flush 3 Ml Syringe) 3 ml IVFLUSH QSHIFT [facility] Last Admin: 06/01/21 07:35 Dose: 3 ml Documented by: Zolpidem Tartrate (Zolpidem Tartrate 5 Mg Tablet) 5 mg PO BEDTIME PRN PRN Reason: Insomnia Time Spent With Patient Time: Total time spent is greater than 50% in coordination of care (as documented) at patient's floor/unit and/or counseling patient: Time with patient: 15 - 24 minutes Quality Stroke Does the patient have a stroke diagnosis?: No VTE Prior VTE?: No VTE Risk Level:: Surgical - moderate VTE Device Contraindication: N/A - Device Ordered VTE Drug Contraindication: Treatment Not Indicated
--- NOTE | 2021-06-01 12:54 | HO.POSTANES ---
Post Anesthesia Evaluation Post Anesthesia Evaluation Vital Signs: Vital Signs Temp Pulse Resp BP Pulse Ox 06/01/21 11:53 98.4 F 85 18 107/59 L 98 06/01/21 07:53 97.3 F 76 18 112/54 L 95 06/01/21 03:20 96.9 F 85 17 108/58 L 98 06/01/21 01:54 18 Anesthesia: Monitored Mental Status: Awake Pain Control: Satisfactory Nausea/Vomiting: None Hydration: Adequate Anesthesia-Related Issues: No Anes. Related Issues
--- NOTE | 2021-06-01 17:07 | PM.UROCN ---
History of Present Illness Consult details Consult date: 06/01/21 Narrative: Jordy is a 30-year-old male Admitted to hospital for Ulcerative colitis with rectal abscess Found to have retention and had difficulty with urination prior to admission Cheng catheter placed for urinary retention approximately 1200 cc Start tamsulosin for 2 weeks Voiding trial 72 hours after Chneg catheter placement Review of Systems Constitutional: Constitutional: Reports as per HPI and Reports no additional constitutional complaints Cardiovascular: Cardiovascular: Reports as per HPI and Reports no additional cardiovascular complaints Respiratory: Respiratory: Reports as per HPI and Reports no additional respiratory complaints Gastrointestinal: Gastrointestinal: Reports as per HPI and Reports no additional gastrointestinal complaints Genitourinary: Genitourinary: Reports as per HPI Musculoskeletal: Musculoskeletal: Reports no additional musculoskeletal complaints and Reports as per HPI Neurologic: Reports system reviewed and no additional complaints, except as documented and Reports as per HPI PMF Past Medical History Medical History Colitis Primary sclerosing cholangitis Social History Social History Household Members: Other Housing: Condominium Do you presently have visiting nurse or other home services: No Patient Tobacco Use Status: Never used Tobacco service: No Meds Allergies Allergy/AdvReac Type Severity Reaction Status Date / Time No Known Allergies Allergy Verified 05/30/21 11:20 Active Medications: Current Medications Hydromorphone HCl (Hydromorphone Hcl 1 Mg/Ml Syringe) 0.5 mg IVPUSH Q3H PRN; Protocol PRN Reason: Pain, Severe (Pain Scale 7-10) Acetaminophen (Ofirmev) 1,000 mg in 100 mls @ 400 mls/hr IV Q6H [facility] Last Infusion: 06/01/21 14:45 Dose: Infused Documented by: Dextrose/Lactated Ringer's ([email or web address]) 1,000 mls @ 125 mls/hr IVCONT .Q8H [facility] Last Admin: 06/01/21 09:21 Dose: 125 mls/hr Documented by: Piperacillin Sod/Tazobactam (Sod 3.375 gm/ Sodium Chloride) 50 mls @ 100 mls/hr IV Q6H [facility] Last Infusion: 06/01/21 15:25 Dose: Infused Documented by: Magnesium Hydroxide (Milk Of Magnesia 30 Ml Oral.Susp) 30 ml PO BEDTIME PRN PRN Reason: Constipation Ondansetron HCl (Ondansetron Hcl 4 Mg/2 Ml Vial) 4 mg IVPUSH Q8H PRN PRN Reason: Nausea Oxycodone HCl (Oxycodone Hcl Immed Release 5 Mg Tablet) 5 mg PO Q6H PRN PRN Reason: Pain, Moderate (Pain Scale 4-6 Last Admin: 06/01/21 00:54 Dose: 5 mg Documented by: Pharmacy Consult (Consult Rx Perform Med Rec) 1 each MISCELLANE ONCE PRN PRN Reason: Consult order Prednisone (Prednisone 10 Mg Tablet) 10 mg PO DAILY [facility] Last Admin: 06/01/21 07:34 Dose: 10 mg Documented by: Sodium Chloride (0.9 % Sodium Chloride Flush 3 Ml Syringe) 3 ml IVFLUSH QSHIFT [facility] Last Admin: 06/01/21 15:51 Dose: Not Given Documented by: Tamsulosin HCl (Tamsulosin Hcl 0.4 Mg Capsule) 0.4 mg PO BEDTIME [facility] Zolpidem Tartrate (Zolpidem Tartrate 5 Mg Tablet) 5 mg PO BEDTIME PRN PRN Reason: Insomnia Home Medications Medication Instructions Recorded Confirmed Last Taken Type multivitamin 1 tab PO DAILY 05/30/21 05/30/21 Unknown History prednisone 10 mg tablet 10 mg PO DAILY 05/30/21 05/30/21 Unknown History Physical Exam Vital Signs: Vital Signs: Last Vital Signs Temp 97.4 F 06/01/21 16:00 Pulse 73 06/01/21 16:00 Resp 17 06/01/21 16:00 BP 109/62 06/01/21 16:00 Pulse Ox 98 06/01/21 16:00 BMI result Body Mass Index 22.6 Const: General: cooperative, healthy appearing, comfortable and no acute distress Orientation/consciousness: patient oriented x3 HENMT: Face and sinus: Yes normal facial exam Mouth: moist mucous membranes Neck: Neck: Yes normal visual inspection, Yes full ROM and Yes trachea midline Chest: Chest palpation & inspection: normal inspection of the chest Resp: Effort & Inspection: normal respiratory effort, able to speak in complete sentences and no respiratory distress GI: Inspection: Yes normal to inspection Back/Spine/Pelvis: Cervical Spine: normal cervical lordosis Thoracic/Lumbar Spine: thoracic and lumbar spine normal to inspection Skin: General skin exam: no rashes or lesions noted Neuro: General: patient oriented x3, tone normal and moves all extremities Extrem: General: Yes normal to inspection and Yes capillary refill normal Results Labs Result diagrams: 06/01/21 07:06 05/31/21 06:15 Labs: Abnormal lab results 06/01/21 Range/Units 07:06 RBC 4.03 L (4.60-5.80) X10*6/uL Hgb 8.6 L (14.0-18.0) g/dl Hct 29.6 L (42.0-52.0) % MCV 73.4 L (80.0-98.0) fL MCH 21.3 L (27.0-33.0) pg MCHC 29.1 L (31.0-36.0) g/dl RDW 16.7 H (11.0-16.0) % Lymph % (Auto) 15.9 L (20-40) % [place] % (Auto) 14.7 H (2-11) % Eos % (Auto) 6.1 H (0-4) % [place] # (Auto) 1.5 H (0.1-1.2) X10*3/uL Eos # (Auto) 0.6 H (0.0-0.4) X10*3/uL Short CBC 06/01/21 Range/Units 07:06 WBC 9.9 (4.8-10.8) X10*3/uL Hgb 8.6 L (14.0-18.0) g/dl Hct 29.6 L (42.0-52.0) % Plt Count 329 (160-400) X10*3/uL Urine 05/30/21 05/31/21 Range/Units 13:33 00:53 Urine Color YELLOW YELLOW Urine Appearance CLEAR CLEAR Urine pH 6.5 6.0 (5.0-8.0) Ur Specific [place] 1.010 1.010 (1.005-1.025) Urine Protein NEG NEG (NEG-TRACE) MG/DL Urine Glucose (UA) NEG NEG (NEG) MG/DL All other labs normal. Assessment and Plan (1) Urinary retention: Status: Acute Plan start tamsulosin voiding trial in 3 days after catheter placement Procedures Date of Service Date of Service: 06/01/21
[2021-06-01] MEDS: Tamsulosin HCL 0.4 MG CAPSULE PO (19:25)
[2021-06-02] MEDS: Piperacillin Sodium/Tazobactam 3.375 GM in 0.9 % Sodium Chloride 50 ML IV ×4 (01:41→19:23)
[2021-06-02] MEDS: Dextrose 5 % and Lactated Ring 1,000 ML 125 ML IVCONT (01:42)
[2021-06-02 03:29] VITALS: BP 120/63; PULSE 70; RESP 17; TEMP 36.6; O2SAT 98
[2021-06-02 06:18] LABS: MANUAL DIFF FLAG NO
[2021-06-02 06:23] LABS: Basophils Absolute Auto 0.1 X10*3/uL (0.0-0.2); Basophils Percent Auto 0.5 % (0-2); Eosinophils Absolute Auto 0.8 X10*3/uL (0.0-0.4); Eosinophils Percent Auto 9.1 % (0-4); Hematocrit 28.6 % (42.0-52.0); Hemoglobin 8.3 g/dl (14.0-18.0); Imm Gran Abs Auto 0.03 X10*3/uL (0.00-0.03); Imm Gran Pct Auto 0.3 % (0.0-0.4); Lymphocytes Absolute Auto 2.4 X10*3/uL (1.2-4.9); Lymphocytes Percent Auto 25.9 % (20-40); Mean Corpuscular Hemoglobin 21.1 pg (27.0-33.0); Mean Corpuscular Volume 72.8 fL (80.0-98.0); Mean Platelet Volume 9.8 fL (9.4-12.4); Monocytes Absolute Auto 1.4 X10*3/uL (0.1-1.2); Monocytes Percent Auto 15.2 % (2-11); Neutrophils Absolute Auto 4.5 x10*3/uL (2.0-8.3); Platelet Count 377 X10*3/uL (160-400); Red Blood Count 3.93 X10*6/uL (4.60-5.80); Red Cell Distribution Width 16.5 % (11.0-16.0); White Blood Count 9.2 X10*3/uL (4.8-10.8)
[2021-06-02 07:30] VITALS: BP 121/64; PULSE 84; RESP 18; TEMP 36.2; O2SAT 98
[2021-06-02] MEDS: oxyCODONE HCl Immed Release 5 MG TABLET PO (07:52)
[2021-06-02] MEDS: predniSONE 10 MG TABLET PO (07:52)
[2021-06-02] MEDS: HYDROmorphone HCl 1 MG/ML SYRINGE 0.5 MG IVPUSH (08:12)
[2021-06-02] MEDS: 0.9 % Sodium Chloride Flush 3 ML SYRINGE IVFLUSH ×3 (08:16→19:24)
--- NOTE | 2021-06-02 09:05 | P.PNGS_ITS ---
Subjective Subjective Date of Service: 06/02/21 Interval history: Some perirectal pain today after having a bowel movement. Reports a large bowel movement yesterday. Continues to have drainage through the perirectal drainage tube. Physical Exam Vital Signs: Vital Signs: Last Vital Signs Temp 97.2 F 06/02/21 07:30 Pulse 84 06/02/21 07:30 Resp 18 06/02/21 07:30 BP 121/64 06/02/21 07:30 Pulse Ox 98 06/02/21 07:30 BMI result Body Mass Index 22.6 Const: General: no acute distress Resp: Effort & Inspection: normal respiratory effort, no audible wheezes and no cough GI: Other: perirectal drain intact, purulent discharge noted. No surrounding erythema appreciated. Skin: General skin exam: no rashes or lesions noted Extrem: General: Yes no clubbing, cyanosis or edema Objective Data Active Medications Hydromorphone HCl (Hydromorphone Hcl 1 Mg/Ml Syringe) 0.5 mg IVPUSH Q3H PRN; Protocol PRN Reason: Pain, Severe (Pain Scale 7-10) Last Admin: 06/02/21 08:12 Dose: 0.5 mg Documented by: JAD Acetaminophen (Ofirmev) 1,000 mg in 100 mls @ 400 mls/hr IV Q6H [facility] Last Infusion: 06/02/21 05:59 Dose: 0 mls/hr Documented by: JUDY Piperacillin Sod/Tazobactam (Sod 3.375 gm/ Sodium Chloride) 50 mls @ 100 mls/hr IV Q6H [facility] Last Infusion: 06/02/21 08:43 Dose: 100 mls/hr Documented by: SEBASTIÁN Magnesium Hydroxide (Milk Of Magnesia 30 Ml Oral.Susp) 30 ml PO BEDTIME PRN PRN Reason: Constipation Ondansetron HCl (Ondansetron Hcl 4 Mg/2 Ml Vial) 4 mg IVPUSH Q8H PRN PRN Reason: Nausea Oxycodone HCl (Oxycodone Hcl Immed Release 5 Mg Tablet) 5 mg PO Q6H PRN PRN Reason: Pain, Moderate (Pain Scale 4-6 Last Admin: 06/02/21 07:52 Dose: 5 mg Documented by: SEBASTIÁN Pharmacy Consult (Consult Rx Perform Med Rec) 1 each MISCELLANE ONCE PRN PRN Reason: Consult order Prednisone (Prednisone 10 Mg Tablet) 10 mg PO DAILY [facility] Last Admin: 06/02/21 07:52 Dose: 10 mg Documented by: SEBASTIÁN Sodium Chloride (0.9 % Sodium Chloride Flush 3 Ml Syringe) 3 ml IVFLUSH QSHIFT [facility] Last Admin: 06/02/21 08:16 Dose: 3 ml Documented by: JAD Tamsulosin HCl (Tamsulosin Hcl 0.4 Mg Capsule) 0.4 mg PO BEDTIME [facility] Last Admin: 06/01/21 19:25 Dose: 0.4 mg Documented by: CASTILHilario Zolpidem Tartrate (Zolpidem Tartrate 5 Mg Tablet) 5 mg PO BEDTIME PRN PRN Reason: Insomnia Labs CBC & Chem 7: 06/02/21 05:55 05/31/21 06:15 Labs: Laboratory Results - last 24 hr 06/02/21 05:55 MCV 72.8 L MCH 21.1 L MCHC 29.0 L RDW 16.5 H Plt Count 377 MPV 9.8 Immature Gran % (Auto) 0.3 Neut % (Auto) 49.0 Lymph % (Auto) 25.9 [place] % (Auto) 15.2 H Eos % (Auto) 9.1 H Baso % (Auto) 0.5 Lymph # (Auto) 2.4 [place] # (Auto) 1.4 H Eos # (Auto) 0.8 H Baso # (Auto) 0.1 Abs Immat Gran (auto) 0.03 Absolute Neuts (auto) 4.5 Absolute Nucleated RBC 0.000 Nucleated RBC % (auto) 0.0 Microbiology Microbiology Results: Microbiology 05/31/21 08:51 Gram Stain - Final Juli-rectal abscess Routine Culture - Final 05/30/21 14:14 Blood Culture - Preliminary Blood - Venous No growth after 48 hours. 05/30/21 13:59 Blood Culture - Preliminary Blood - Venous No growth after 48 hours. Procedures Date of Service Date of Service: 06/02/21 Progress Note: A&P Assessment and plan (1) Perirectal abscess: Status: Acute (2) Urinary retention: Status: Acute Plan Overall the patient is improved with decreased pain and normalization of the WBC. Hemoglobin and hematocrit are essentially stable.Continue IV antibiotics. Will need voiding trial after 72 hours of oviedo cath placement. Fall Risk Details Current Medications: Current Medications Hydromorphone HCl (Hydromorphone Hcl 1 Mg/Ml Syringe) 0.5 mg IVPUSH Q3H PRN; Protocol PRN Reason: Pain, Severe (Pain Scale 7-10) Last Admin: 06/02/21 08:12 Dose: 0.5 mg Documented by: Acetaminophen (Ofirmev) 1,000 mg in 100 mls @ 400 mls/hr IV Q6H [facility] Last Infusion: 06/02/21 05:59 Dose: Infused Documented by: Piperacillin Sod/Tazobactam (Sod 3.375 gm/ Sodium Chloride) 50 mls @ 100 mls/hr IV Q6H [facility] Last Infusion: 06/02/21 08:43 Dose: Infused Documented by: Magnesium Hydroxide (Milk Of Magnesia 30 Ml Oral.Susp) 30 ml PO BEDTIME PRN PRN Reason: Constipation Ondansetron HCl (Ondansetron Hcl 4 Mg/2 Ml Vial) 4 mg IVPUSH Q8H PRN PRN Reason: Nausea Oxycodone HCl (Oxycodone Hcl Immed Release 5 Mg Tablet) 5 mg PO Q6H PRN PRN Reason: Pain, Moderate (Pain Scale 4-6 Last Admin: 06/02/21 07:52 Dose: 5 mg Documented by: Pharmacy Consult (Consult Rx Perform Med Rec) 1 each MISCELLANE ONCE PRN PRN Reason: Consult order Prednisone (Prednisone 10 Mg Tablet) 10 mg PO DAILY [facility] Last Admin: 06/02/21 07:52 Dose: 10 mg Documented by: Sodium Chloride (0.9 % Sodium Chloride Flush 3 Ml Syringe) 3 ml IVFLUSH QSHIFT [facility] Last Admin: 06/02/21 08:16 Dose: 3 ml Documented by: Tamsulosin HCl (Tamsulosin Hcl 0.4 Mg Capsule) 0.4 mg PO BEDTIME [facility] Last Admin: 06/01/21 19:25 Dose: 0.4 mg Documented by: Zolpidem Tartrate (Zolpidem Tartrate 5 Mg Tablet) 5 mg PO BEDTIME PRN PRN Reason: Insomnia Time Spent With Patient Time: Total time spent is greater than 50% in coordination of care (as documented) at patient's floor/unit and/or counseling patient: Time with patient: 15 - 24 minutes Quality Stroke Does the patient have a stroke diagnosis?: No VTE Prior VTE?: No VTE Risk Level:: Surgical - moderate VTE Device Contraindication: N/A - Device Ordered VTE Drug Contraindication: Treatment Not Indicated
[2021-06-02 11:39] VITALS: BP 104/60; PULSE 76; RESP 18; TEMP 36.3; O2SAT 98
[2021-06-02 16:00] VITALS: BP 105/54; PULSE 73; RESP 18; TEMP 36.3; O2SAT 98
[2021-06-02] MEDS: oxyCODONE HCl Immed Release 5 MG TABLET 10 MG PO (16:29)
[2021-06-02] MEDS: Tamsulosin HCL 0.4 MG CAPSULE PO (19:24)
[2021-06-02 20:00] VITALS: BP 108/55; PULSE 76; RESP 18; TEMP 36.2; O2SAT 96
[2021-06-03] VITALS (7 sets, daily range): BP systolic 104–116; BP diastolic 57–69; PULSE 66–75; RESP 16–18; TEMP 36.1–36.8; O2SAT 95–98
[2021-06-03] MEDS: Piperacillin Sodium/Tazobactam 3.375 GM in 0.9 % Sodium Chloride 50 ML IV ×4 (03:29→20:02)
[2021-06-03] MEDS: oxyCODONE HCl Immed Release 5 MG TABLET 10 MG PO ×2 (06:55→16:14)
[2021-06-03] MEDS: 0.9 % Sodium Chloride Flush 3 ML SYRINGE IVFLUSH ×2 (07:54→16:17)
[2021-06-03] MEDS: predniSONE 10 MG TABLET PO (07:54)
--- NOTE | 2021-06-03 08:49 | PM.PNGS ---
Subjective Subjective Date of Service: 06/03/21 Interval history: Reported increased pain this morning in rectal region after trying to have a BM. Physical Exam Vital Signs: Vital Signs: Last Vital Signs Temp 97.4 F 06/03/21 07:28 Pulse 69 06/03/21 07:28 Resp 18 06/03/21 07:28 BP 109/69 06/03/21 07:28 Pulse Ox 97 06/03/21 07:28 BMI result Body Mass Index 22.6 Const: General: no acute distress Nutritional Appearance: well nourished Orientation/consciousness: patient oriented x3 Limitations: no limitations Resp: Effort & Inspection: normal respiratory effort GI: Other: Rectal dressing changed some bloody and purulent discharge noted. No erythema. ? bleeding from drain sutures. Palpation (GI): Soft to palpation Skin: General skin exam: no rashes or lesions noted Neuro: General: patient oriented x3 Extrem: General: Yes no clubbing, cyanosis or edema Objective Data Active Medications Acetaminophen (Ofirmev) 1,000 mg in 100 mls @ 400 mls/hr IV Q6H [facility] Last Infusion: 06/03/21 06:00 Dose: 0 mls/hr Documented by: JUDY Piperacillin Sod/Tazobactam (Sod 3.375 gm/ Sodium Chloride) 50 mls @ 100 mls/hr IV Q6H [facility] Last Infusion: 06/03/21 08:23 Dose: 0 mls/hr Documented by: NANCY Magnesium Hydroxide (Milk Of Magnesia 30 Ml Oral.Susp) 30 ml PO BEDTIME PRN PRN Reason: Constipation Ondansetron HCl (Ondansetron Hcl 4 Mg/2 Ml Vial) 4 mg IVPUSH Q8H PRN PRN Reason: Nausea Oxycodone HCl (Oxycodone Hcl Immed Release 5 Mg Tablet) 5 mg PO Q6H PRN PRN Reason: Pain, Moderate (Pain Scale 4-6 Last Admin: 06/02/21 07:52 Dose: 5 mg Documented by: SEBASTIÁN Oxycodone HCl (Oxycodone Hcl Immed Release 5 Mg Tablet) 10 mg PO Q6H PRN PRN Reason: Pain, Severe (Pain Scale 7-10) Last Admin: 06/03/21 06:55 Dose: 10 mg Documented by: HO.[email or web address] Pharmacy Consult (Consult Rx Perform Med Rec) 1 each MISCELLANE ONCE PRN PRN Reason: Consult order Prednisone (Prednisone 10 Mg Tablet) 10 mg PO DAILY [facility] Last Admin: 06/03/21 07:54 Dose: 10 mg Documented by: NANCY Sodium Chloride (0.9 % Sodium Chloride Flush 3 Ml Syringe) 3 ml IVFLUSH QSHIFT [facility] Last Admin: 06/03/21 07:54 Dose: 3 ml Documented by: NANCY Tamsulosin HCl (Tamsulosin Hcl 0.4 Mg Capsule) 0.4 mg PO BEDTIME [facility] Last Admin: 06/02/21 19:24 Dose: 0.4 mg Documented by: CASTILHilario Zolpidem Tartrate (Zolpidem Tartrate 5 Mg Tablet) 5 mg PO BEDTIME PRN PRN Reason: Insomnia Labs CBC & Chem 7: 06/02/21 05:55 05/31/21 06:15 Microbiology Microbiology Results: Microbiology 05/31/21 08:51 Gram Stain - Final Juli-rectal abscess Routine Culture - Final Procedures Date of Service Date of Service: 06/03/21 Progress Note: A&P Assessment and plan (1) Perirectal abscess: Status: Acute Assessment and Plan: Abscess seems to be improving with normal WBC. Wound cultures with a mixed giselle There is some purulent discharge noted on the dressings today but overall decreased. Will repeat CT to evaluate the deeper collection. Continue Zosyn (2) Anemia due to chronic blood loss: Status: Acute Assessment and Plan: H/H essentially stable Continue to monitor (3) Constipation: Status: Acute Assessment and Plan: Still feels he is constipated although has had several BMs Will evaluate with CT pelvis today Fall Risk Details Current Medications: Current Medications Acetaminophen (Ofirmev) 1,000 mg in 100 mls @ 400 mls/hr IV Q6H [facility] Last Infusion: 06/03/21 06:00 Dose: Infused Documented by: Piperacillin Sod/Tazobactam (Sod 3.375 gm/ Sodium Chloride) 50 mls @ 100 mls/hr IV Q6H [facility] Last Infusion: 06/03/21 08:23 Dose: Infused Documented by: Magnesium Hydroxide (Milk Of Magnesia 30 Ml Oral.Susp) 30 ml PO BEDTIME PRN PRN Reason: Constipation Ondansetron HCl (Ondansetron Hcl 4 Mg/2 Ml Vial) 4 mg IVPUSH Q8H PRN PRN Reason: Nausea Oxycodone HCl (Oxycodone Hcl Immed Release 5 Mg Tablet) 5 mg PO Q6H PRN PRN Reason: Pain, Moderate (Pain Scale 4-6 Last Admin: 06/02/21 07:52 Dose: 5 mg Documented by: Oxycodone HCl (Oxycodone Hcl Immed Release 5 Mg Tablet) 10 mg PO Q6H PRN PRN Reason: Pain, Severe (Pain Scale 7-10) Last Admin: 06/03/21 06:55 Dose: 10 mg Documented by: Pharmacy Consult (Consult Rx Perform Med Rec) 1 each MISCELLANE ONCE PRN PRN Reason: Consult order Prednisone (Prednisone 10 Mg Tablet) 10 mg PO DAILY [facility] Last Admin: 06/03/21 07:54 Dose: 10 mg Documented by: Sodium Chloride (0.9 % Sodium Chloride Flush 3 Ml Syringe) [facility] Admin: 06/03/21 07:54 Dose: 3 ml Documented by: Tamsulosin HCl (Tamsulosin Hcl 0.4 Mg Capsule) 0.4 mg PO BEDTIME [facility] Last Admin: 06/02/21 19:24 Dose: 0.4 mg Documented by: Zolpidem Tartrate (Zolpidem Tartrate 5 Mg Tablet) 5 mg PO BEDTIME PRN PRN Reason: Insomnia Time Spent With Patient Time: Total time spent is greater than 50% in coordination of care (as documented) at patient's floor/unit and/or counseling patient: Time with patient: 15 - 24 minutes Quality Stroke Does the patient have a stroke diagnosis?: No VTE Prior VTE?: No VTE Risk Level:: Surgical - moderate VTE Device Contraindication: N/A - Device Ordered VTE Drug Contraindication: Treatment Not Indicated
[2021-06-03] MEDS: iohexoL 350 MG/ML 100 ML INFUS..BTL IV (09:33)
[2021-06-03] MEDS: Tamsulosin HCL 0.4 MG CAPSULE PO (20:05)
[2021-06-04] MEDS: Piperacillin Sodium/Tazobactam 3.375 GM in 0.9 % Sodium Chloride 50 ML IV ×4 (01:13→19:59)
[2021-06-04] MEDS: oxyCODONE HCl Immed Release 5 MG TABLET 10 MG PO ×3 (01:13→14:21)
[2021-06-04 07:25] VITALS: BP 112/57; PULSE 63; RESP 18; TEMP 36.3; O2SAT 98
[2021-06-04] MEDS: predniSONE 10 MG TABLET PO (07:45)
[2021-06-04] MEDS: 0.9 % Sodium Chloride Flush 3 ML SYRINGE IVFLUSH ×3 (07:45→20:38)
[2021-06-04 11:41] VITALS: BP 108/62; PULSE 75; RESP 18; TEMP 36.6; O2SAT 98
--- NOTE | 2021-06-04 14:39 | MHC.CM.PN ---
EMR REVIEWED, CM DISCUSSED CASE W/RN WHO REPORTED SURGICAL IS PLANNING TO D/C PT TOMORROW 06/05, ORTA CATH REMOVED YESTERDAY AND IS VOIDING ON HIS OWN. D/C PLAN: HOME SELF-CARE W/FAMILY FOR TRANSPORT.
[2021-06-04 15:50] VITALS: BP 117/67; PULSE 81; RESP 20; TEMP 36.7; O2SAT 97
--- NOTE | 2021-06-04 16:29 | P.PNGS_ITS ---
Subjective Subjective Date of Service: 06/04/21 Interval history: Overall,the patient feels improved but still has some perirectal pain Physical Exam Vital Signs: Vital Signs: Last Vital Signs Temp 98.0 F 06/04/21 15:50 Pulse 81 06/04/21 15:50 Resp 20 06/04/21 15:50 BP 117/67 06/04/21 15:50 Pulse Ox 97 06/04/21 15:50 BMI result Body Mass Index 22.6 Const: General: no acute distress Nutritional Appearance: well nourished Orientation/consciousness: patient oriented x3 Limitations: no limitations Resp: Effort & Inspection: normal respiratory effort GI: Other: wound clean and drain intact Inspection: Yes normal to inspection Palpation (GI): Soft to palpation, nontender and no guarding Neuro: General: patient oriented x3 Extrem: General: Yes no pedal edema Objective Data Active Medications Acetaminophen (Ofirmev) 1,000 mg in 100 mls @ 400 mls/hr IV Q6H [facility] Last Infusion: 06/04/21 12:19 Dose: 0 mls/hr Documented by: NANCY Piperacillin Sod/Tazobactam (Sod 3.375 gm/ Sodium Chloride) 50 mls @ 100 mls/hr IV Q6H [facility] Last Infusion: 06/04/21 14:58 Dose: 0 mls/hr Documented by: NANCY Magnesium Hydroxide (Milk Of Magnesia 30 Ml Oral.Susp) 30 ml PO BEDTIME PRN PRN Reason: Constipation Ondansetron HCl (Ondansetron Hcl 4 Mg/2 Ml Vial) 4 mg IVPUSH Q8H PRN PRN Reason: Nausea Oxycodone HCl (Oxycodone Hcl Immed Release 5 Mg Tablet) 5 mg PO Q6H PRN PRN Reason: Pain, Moderate (Pain Scale 4-6 Last Admin: 06/02/21 07:52 Dose: 5 mg Documented by: SEBASTIÁN Oxycodone HCl (Oxycodone Hcl Immed Release 5 Mg Tablet) 10 mg PO Q6H PRN PRN Reason: Pain, Severe (Pain Scale 7-10) Last Admin: 06/04/21 14:21 Dose: 10 mg Documented by: NANCY Pharmacy Consult (Consult Rx Perform Med Rec) 1 each MISCELLANE ONCE PRN PRN Reason: Consult order Prednisone (Prednisone 10 Mg Tablet) 10 mg PO DAILY [facility] Last Admin: 06/04/21 07:45 Dose: 10 mg Documented by: JAD Sodium Chloride (0.9 % Sodium Chloride Flush 3 Ml Syringe) 3 ml IVFLUSH QSHIFT [facility] Last Admin: 06/04/21 07:45 Dose: 3 ml Documented by: JAD Tamsulosin HCl (Tamsulosin Hcl 0.4 Mg Capsule) 0.4 mg PO BEDTIME [facility] Last Admin: 06/03/21 20:05 Dose: 0.4 mg Documented by: FEMI Zolpidem Tartrate (Zolpidem Tartrate 5 Mg Tablet) 5 mg PO BEDTIME PRN PRN Reason: Insomnia Labs CBC & Chem 7: 06/02/21 05:55 05/31/21 06:15 Microbiology Microbiology Results: Microbiology 05/30/21 14:14 Blood Culture - Final Blood - Venous No growth after 5 days. 05/30/21 13:59 Blood Culture - Final Blood - Venous No growth after 5 days. Procedures Date of Service Date of Service: 06/04/21 Progress Note: A&P Assessment and plan (1) Perirectal abscess: Status: Acute (2) Sepsis: Status: Acute (3) Colitis: Status: Acute (4) Anemia due to chronic blood loss: Status: Acute (5) Constipation: Status: Acute Plan Continue IV antibiotics OOB and ambulate Will leave tube inplace on discharge Fall Risk Details Current Medications: Current Medications Acetaminophen (Ofirmev) 1,000 mg in 100 mls @ 400 mls/hr IV Q6H [facility] Last Infusion: 06/04/21 12:19 Dose: Infused Documented by: Piperacillin Sod/Tazobactam (Sod 3.375 gm/ Sodium Chloride) 50 mls @ 100 mls/hr IV Q6H [facility] Last Infusion: 06/04/21 14:58 Dose: Infused Documented by: Magnesium Hydroxide (Milk Of Magnesia 30 Ml Oral.Susp) 30 ml PO BEDTIME PRN PRN Reason: Constipation Ondansetron HCl (Ondansetron Hcl 4 Mg/2 Ml Vial) 4 mg IVPUSH Q8H PRN PRN Reason: Nausea Oxycodone HCl (Oxycodone Hcl Immed Release 5 Mg Tablet) 5 mg PO Q6H PRN PRN Reason: Pain, Moderate (Pain Scale 4-6 Last Admin: 06/02/21 07:52 Dose: 5 mg Documented by: Oxycodone HCl (Oxycodone Hcl Immed Release 5 Mg Tablet) 10 mg PO Q6H PRN PRN Reason: Pain, Severe (Pain Scale 7-10) Last Admin: 06/04/21 14:21 Dose: 10 mg Documented by: Pharmacy Consult (Consult Rx Perform Med Rec) 1 each MISCELLANE ONCE PRN PRN Reason: Consult order Prednisone (Prednisone 10 Mg Tablet) 10 mg PO DAILY [facility] Last Admin: 06/04/21 07:45 Dose: 10 mg Documented by: Sodium Chloride (0.9 % Sodium Chloride Flush 3 Ml Syringe) 3 ml IVFLUSH QSHIFT [facility] Last Admin: 06/04/21 07:45 Dose: 3 ml Documented by: Tamsulosin HCl (Tamsulosin Hcl 0.4 Mg Capsule) 0.4 mg PO BEDTIME [facility] Last Admin: 06/03/21 20:05 Dose: 0.4 mg Documented by: Zolpidem Tartrate (Zolpidem Tartrate 5 Mg Tablet) 5 mg PO BEDTIME PRN PRN Reason: Insomnia Time Spent With Patient Time: Total time spent is greater than 50% in coordination of care (as documented) at patient's floor/unit and/or counseling patient: Time with patient: 15 - 24 minutes Quality Stroke Does the patient have a stroke diagnosis?: No VTE Prior VTE?: No VTE Risk Level:: Surgical - moderate VTE Device Contraindication: N/A - Device Ordered VTE Drug Contraindication: Treatment Not Indicated
[2021-06-04 19:57] VITALS: BP 101/55; PULSE 86; RESP 18; TEMP 36.4; O2SAT 98
[2021-06-04] MEDS: Tamsulosin HCL 0.4 MG CAPSULE PO (20:38)
[2021-06-04 23:24] VITALS: BP 109/60; PULSE 77; RESP 18; TEMP 36.6; O2SAT 98
[2021-06-05] MEDS: Piperacillin Sodium/Tazobactam 3.375 GM in 0.9 % Sodium Chloride 50 ML IV ×2 (02:02→07:28)
[2021-06-05 03:18] VITALS: BP 104/61; PULSE 68; RESP 18; TEMP 36.6; O2SAT 98
[2021-06-05] MEDS: oxyCODONE HCl Immed Release 5 MG TABLET 10 MG PO (04:19)
[2021-06-05] MEDS: predniSONE 10 MG TABLET PO (07:28)
[2021-06-05] MEDS: 0.9 % Sodium Chloride Flush 3 ML SYRINGE IVFLUSH (07:29)
[2021-06-05 07:59] VITALS: BP 112/72; PULSE 67; RESP 18; TEMP 36.4; O2SAT 98
--- NOTE | 2021-06-05 08:15 | P.PNGS_ITS ---
Subjective Subjective Date of Service: 06/05/21 Interval history: Patient reports a bowel movement yesterday but did have pain following the bowel movement. Denies any urinary symptoms currently. Physical Exam Vital Signs: Vital Signs: Last Vital Signs Temp 97.6 F 06/05/21 07:59 Pulse 67 06/05/21 07:59 Resp 18 06/05/21 07:59 BP 112/72 06/05/21 07:59 Pulse Ox 98 06/05/21 07:59 BMI result Body Mass Index 22.6 Const: General: comfortable and well developed Nutritional Appearance: well nourished Orientation/consciousness: patient oriented x3 Limitations: no limitations Resp: Effort & Inspection: normal respiratory effort GI: Other: Rectal exam with minimal bloody discharge. Drainage tube removed and sterile dressings applied. Inspection: Yes normal to inspection Palpation (GI): Soft to palpation, nontender and no guarding Neuro: General: patient oriented x3 Extrem: General: Yes no clubbing, cyanosis or edema Objective Data Active Medications Acetaminophen (Ofirmev) 1,000 mg in 100 mls @ 400 mls/hr IV Q6H [facility] Last Infusion: 06/05/21 05:56 Dose: 0 mls/hr Documented by: SIXTO Piperacillin Sod/Tazobactam (Sod 3.375 gm/ Sodium Chloride) 50 mls @ 100 mls/hr IV Q6H [facility] Last Infusion: 06/05/21 07:59 Dose: 0 mls/hr Documented by: PEDRO Magnesium Hydroxide (Milk Of Magnesia 30 Ml Oral.Susp) 30 ml PO BEDTIME PRN PRN Reason: Constipation Ondansetron HCl (Ondansetron Hcl 4 Mg/2 Ml Vial) 4 mg IVPUSH Q8H PRN PRN Reason: Nausea Oxycodone HCl (Oxycodone Hcl Immed Release 5 Mg Tablet) 5 mg PO Q6H PRN PRN Reason: Pain, Moderate (Pain Scale 4-6 Last Admin: 06/02/21 07:52 Dose: 5 mg Documented by: SEBASTIÁN Oxycodone HCl (Oxycodone Hcl Immed Release 5 Mg Tablet) 10 mg PO Q6H PRN PRN Reason: Pain, Severe (Pain Scale 7-10) Last Admin: 06/05/21 04:19 Dose: 10 mg Documented by: SIXTO Pharmacy Consult (Consult Rx Perform Med Rec) 1 each MISCELLANE ONCE PRN PRN Reason: Consult order Prednisone (Prednisone 10 Mg Tablet) 10 mg PO DAILY [facility] Last Admin: 06/05/21 07:28 Dose: 10 mg Documented by: PEDRO Sodium Chloride (0.9 % Sodium Chloride Flush 3 Ml Syringe) 3 ml IVFLUSH QSHIFT [facility] Last Admin: 06/05/21 07:29 Dose: 3 ml Documented by: PEDRO Tamsulosin HCl (Tamsulosin Hcl 0.4 Mg Capsule) 0.4 mg PO BEDTIME [facility] Last Admin: 06/04/21 20:38 Dose: 0.4 mg Documented by: SIXTO Zolpidem Tartrate (Zolpidem Tartrate 5 Mg Tablet) 5 mg PO BEDTIME PRN PRN Reason: Insomnia Labs CBC & Chem 7: 06/02/21 05:55 05/31/21 06:15 Microbiology Microbiology Results: Microbiology 05/30/21 14:14 Blood Culture - Final Blood - Venous No growth after 5 days. 05/30/21 13:59 Blood Culture - Final Blood - Venous No growth after 5 days. Procedures Date of Service Date of Service: 06/05/21 Progress Note: A&P Assessment and plan (1) Perirectal abscess: Status: Acute Assessment and Plan: Abscess has resolved. Patient's WBC is normal. Continue amoxicillin / clavulanic acid 1 tab p.o. b.i.d. times 7 days. He will be discharged to home today with follow-up in the office in 1 week. He should call for problems or questions. (2) Sepsis: Status: Acute Assessment and Plan: Sepsis is resolved following drainage of perirectal abscess (3) Urinary retention: Status: Acute Assessment and Plan: urinary retention now resolved following Cheng catheter placement and initiation of Flomax. Continue Flomax as an outpatient. (4) Colitis: Status: Acute Assessment and Plan: Patient will follow-up with his [place] surgeon regarding for further management of colitis and perirectal abscess. Fall Risk Details Current Medications: Current Medications Acetaminophen (Ofirmev) 1,000 mg in 100 mls @ 400 mls/hr IV Q6H [facility] Last Infusion: 06/05/21 05:56 Dose: Infused Documented by: Piperacillin Sod/Tazobactam (Sod 3.375 gm/ Sodium Chloride) 50 mls @ 100 mls/hr IV Q6H [facility] Last Infusion: 06/05/21 07:59 Dose: Infused Documented by: Magnesium Hydroxide (Milk Of Magnesia 30 Ml Oral.Susp) 30 ml PO BEDTIME PRN PRN Reason: Constipation Ondansetron HCl (Ondansetron Hcl 4 Mg/2 Ml Vial) 4 mg IVPUSH Q8H PRN PRN Reason: Nausea Oxycodone HCl (Oxycodone Hcl Immed Release 5 Mg Tablet) 5 mg PO Q6H PRN PRN Reason: Pain, Moderate (Pain Scale 4-6 Last Admin: 06/02/21 07:52 Dose: 5 mg Documented by: Oxycodone HCl (Oxycodone Hcl Immed Release 5 Mg Tablet) 10 mg PO Q6H PRN PRN Reason: Pain, Severe (Pain Scale 7-10) Last Admin: 06/05/21 04:19 Dose: 10 mg Documented by: Pharmacy Consult (Consult Rx Perform Med Rec) 1 each MISCELLANE ONCE PRN PRN Reason: Consult order Prednisone (Prednisone 10 Mg Tablet) 10 mg PO DAILY [facility] Last Admin: 06/05/21 07:28 Dose: 10 mg Documented by: Sodium Chloride (0.9 % Sodium Chloride Flush 3 Ml Syringe) [facility] Last Admin: 06/05/21 07:29 Dose: 3 ml Documented by: Tamsulosin HCl (Tamsulosin Hcl 0.4 Mg Capsule) 0.4 mg PO BEDTIME [facility] Last Admin: 06/04/21 20:38 Dose: 0.4 mg Documented by: Zolpidem Tartrate (Zolpidem Tartrate 5 Mg Tablet) 5 mg PO BEDTIME PRN PRN Reason: Insomnia Time Spent With Patient Time: Total time spent is greater than 50% in coordination of care (as documented) at patient's floor/unit and/or counseling patient: Time with patient: 15 - 24 minutes Quality Stroke Does the patient have a stroke diagnosis?: No VTE Prior VTE?: No VTE Risk Level:: Surgical - moderate VTE Device Contraindication: N/A - Device Ordered VTE Drug Contraindication: Treatment Not Indicated
--- NOTE | 2021-06-05 09:38 | MHC.CM.PN ---
nurse case folder note electronic medical record reviewed along with case discussed with staff nurse and surgical pa, patient does not want or feel vna is necessary he no longer has a j-p drain and feels he can manage he will follow up with his pcp and gi physician after discharge , dischagre home no services transportation family
--- NOTE | 2021-06-11 15:56 | PM.DS ---
DS: Providers Provider Date of Service: 06/05/21 Date of admission: 05/31/21 00:32 Date of discharge: 06/05/21 Primary care physician: Unknown Physician Admitting clinician: Juan Moss Consults: 06/01/21 07:53 Consult to Urology Routine Consulting Provider: Jordy Smith Reason for consultation: Perirectal abscess, urinary retension, ulcerative colitis Has provider been notified: No Discharging clinician: Juan Moss DS: Diagnosis Discharge Diagnosis (1) Perirectal abscess: (2) Sepsis: (3) Urinary retention: (4) Colitis: Status: Acute DS: Summary Hospital Course Hospital Course: Jordy Barnett is a 30 year old male with a known history of ulcerative colitis and a previous rectal abscess two months ago, now with a two day history of rectal pain and constipation followed by bloody diarrhea.? 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 He denies prior fever, chills, nausea or vomiting.? He was planning a total colectomy in the summer. Patient was initially evaluated in the walk-in clinic, then sent to ED for further evaluation.? WBC 18, CT positivie for rectal abscess and colitis.? On 05/31 2021, he underwent an exam under anesthesia and edge of a large horseshoe perirectal abscess with placement of a mallencot tube. Operative findings were consistent with a large deep perirectal abscess. He tolerated the procedure well but continued to have some perirectal pain postoperatively. Continue have drainage through the incision and drainage site and Tube on a daily basis. By the 1st postoperative day his pain was improved as was is WBC. Continued on IV antibiotics for the next several days and continue to show improvement overall. He initially was quite constipated but after several days was able to pass a large bowel movement. The patient did develop urinary retention perioperatively and required several straight caths both prior to surgery and after surgery. A Cheng catheter was subsequently inserted and a Urology consultation obtained. Cheng catheter was kept in for 72 hours after which a voiding trial was tried and he was successful in voiding. He was also started on Flomax. . On postoperative day 5 patient felt much improved and is WBC and normalized. His vital signs were normal as well. He was still draining some serosanguineous fluid through the tube. The tube was subsequently removed sterile dressings applied. He was instructed on local wound care. The IV antibiotics were stopped and he was placed on oral antibiotics. Patient is discharged to home on 06/05/2021 in stable condition. He should follow up my office in approximately 1 week or follow-up with his [place] surgeon for further management of his ulcerative colitis. Time spent discussing smoking cessation with patient: 3 to 10 minutes Time Spent with Patient Time attestation: Total time spent providing and/or coordinating discharge services: Discharge coordination time: Less than 30 minutes Quality: Stroke Does the patient have a stroke diagnosis?: No Physical Exam Vital Signs: Vital Signs: Last Vital Signs Temp 97.6 F 06/05/21 07:59 Pulse 67 06/05/21 07:59 Resp 18 06/05/21 07:59 BP 112/72 06/05/21 07:59 Pulse Ox 98 06/05/21 07:59 BMI result Body Mass Index 22.6 Const General:?comfortable and well developed Nutritional Appearance:?well nourished Orientation/consciousness:?patient oriented x3 Limitations:?no limitations Resp Effort & Inspection:?normal respiratory effort GI Other: ? Rectal exam with minimal bloody discharge.? Drainage tube removed and sterile dressings applied. Inspection:?Yes normal to inspection Palpation (GI):?Soft to palpation, nontender and no guarding Neuro General:?patient oriented x3 Extrem General:?Yes no clubbing, cyanosis or edema DS: Data Data Completed and Pending Completed studies during hospitalization [Text1]: Procedures Drainage of Buttock Skin, External Approach (05/31/21) Discharge Plan Discharge Patient Disposition: Home Health Service Discharge Diagnosis: perirectal abscess Referrals: Juan Moss MD [Physician] - 1 Week PhysicianLisa [Primary Care Provider] - 1 Week Discharge Medications: New amoxicillin-pot clavulanate [Augmentin] 500-125 mg tablet 1 tab PO BID Qty: 14 0RF tamsulosin [Flomax] 0.4 mg capsule 0.4 mg PO DAILY Qty: 10 0RF oxycodone-acetaminophen [Endocet] 5-325 mg tablet 1 tab PO Q6H PRN (Reason: pain (scale score 7-10)) Qty: 15 0RF Continued multivitamin Tablet 1 tab PO DAILY 0RF prednisone 10 mg tablet 10 mg PO DAILY 0RF Discharge Orders: Discharge Order (Routine); Ordered 06/05/21 Ordered By: Juan Moss Diet: other Activity on Discharge: As tolerated Stand Alone Forms: Patient Portal Discharge page Activity Restrictions/Additional Instructions: Dressing change daily and PRN. Sitz baths TID. Low residue diet. Call Your Doctor If: ? ? -Your temperature exceeds 101.5? F? ? ? -You experience excessive pain or swelling ? ? -You have an unexpected reaction to medication ? ? -You experience continued vomiting/nausea Care Plan Goals: Return to baseline health and gradual return to activity following recovery period. Resolution of abscess, drain removal. Health Concerns: Crohns Disease Perirectal abscess Plan of Treatment: s/p I&D with drain placement ANtibitoics Assessment: Improved Discharge Date/Time: 06/05/21 10:33
== END 2021-06-05 10:33 | disposition home health service (06) | DRG 872 ==
LOC: HO.ED 17:28 → HO.EDOVER 05-31 00:37 → HO.S3 05-31 00:59
PROVIDERS: Internal Medicine; Physician Assistant; Admitting Provider Surgery; Emergency Provider Emergency Medicine; Visit Provider Surgery
PROC: 0H98XZZ Drainage of Buttock Skin, External Approach (ICD-10-PCS; CPT 46040; principal; 2021-05-31 08:30)
DX: A41.9 Sepsis, unspecified organism (principal); K51.914 Ulcerative colitis, unspecified with abscess; D50.0 Iron deficiency anemia secondary to blood loss (chronic); K59.00 Constipation, unspecified; R33.9 Retention of urine, unspecified; Z20.822 Contact with and (suspected) exposure to COVID-19; Z79.52 Long term (current) use of systemic steroids; Z79.899 Other long term (current) drug therapy
CPT/HCPCS: 36415; 72193; 74177; 80048; 80076; 81003; 83605; 83735; 85025; 85610; 85730; 87040; 87071; 87205; 87635; 96361; 96365; 96375; 99024; 99285; C1758; J0131; J1170; J1885; J2250; J2270; J2405; J2543; J3010; Q9967